=== PATIENT | female | born 1995 | race Caucasian/White ===

== ENCOUNTER 2023-05-17 10:37 | Outpatient (REF) | payer MEDICAID, SELFPAY ==
[2023-05-17 11:13] LABS: MANUAL DIFF FLAG NO
[2023-05-17 11:34] LABS: Basophils Percent Auto 0.4 % (0-2); Eosinophils Absolute Auto 0.1 X10*3/uL (0.0-0.4); Eosinophils Percent Auto 1.4 % (0-4); Hematocrit 42.3 % (37.0-47.0); Hemoglobin 13.7 g/dl (12.0-16.0); Imm Gran Abs Auto 0.02 X10*3/uL (0.00-0.03); Imm Gran Pct Auto 0.2 % (0.0-0.4); Lymphocytes Absolute Auto 2.4 X10*3/uL (1.2-4.9); Lymphocytes Percent Auto 26.1 % (20-40); Mean Corpuscular HGB Conc 32.4 g/dl (31.0-35.0); Mean Corpuscular Hemoglobin 31.5 pg (27.0-33.0); Mean Corpuscular Volume 97.2 fL (80.0-98.0); Mean Platelet Volume 12.4 fL (9.4-12.3); Monocytes Absolute Auto 0.7 X10*3/uL (0.1-1.2); Monocytes Percent Auto 7.7 % (2-11); Neutrophils Percent Auto 64.2 % (45-73); Platelet Count 259 X10*3/uL (160-400); Red Blood Count 4.35 X10*6/uL (4.20-5.50); Red Cell Distribution Width 12.4 % (11.0-16.0); White Blood Count 9.4 X10*3/uL (4.8-10.8)
[2023-05-17 12:11] LABS: TSH reflex Free T4 1.83 uIU/mL (0.32-4.0)
[2023-05-18 06:59] LABS: HCG Tumor Marker <5 mIU/mL
== END 2023-05-17 10:38 | disposition home or self-care (01) ==
LOC: HO.HHCL 10:37
PROVIDERS: Visit Provider Registered Nurse
DX: N93.9 Abnormal uterine and vaginal bleeding, unspecified (principal); R53.83 Other fatigue
CPT/HCPCS: 36415; 84443; 84702; 85025

== ENCOUNTER 2023-07-04 10:02 | Outpatient (REF) | payer MEDICAID, SELFPAY ==
--- NOTE | ~2023-07-04 | XR_ITS ---
EXAMINATION: XR CHEST CLINICAL INFORMATION: Productive cough and wheezing COMPARISON: None available. TECHNIQUE: 2 views of the chest were obtained. FINDINGS: No significant abnormality is noted involving the heart, lungs, mediastinum, bony thorax or soft tissues. XR/XR chest 2V IMPRESSION: Unremarkable examination.
[2023-07-04 18:44] LABS: Influenza A PCR NEGATIVE (Negative); Influenza B PCR NEGATIVE (Negative); Resp Syncy Virus RNA Qual PCR NEGATIVE (Negative); SARS COV2 PCR INHOUSE NEGATIVE (Negative)
== END 2023-07-04 10:03 | disposition home or self-care (01) ==
LOC: HO.HHCX 10:02
PROVIDERS: Visit Provider Emergency Medicine
DX: J45.41 Moderate persistent asthma with (acute) exacerbation (principal)
CPT/HCPCS: 0241U; 71046; 87070

== ENCOUNTER 2023-07-20 14:27 | Outpatient (REF) | payer MEDICAID, SELFPAY ==
[2023-07-20 16:22] LABS: Estimated Average Glucose 94 mg/dL; Hemoglobin A1c % 4.9 % (<6.0)
[2023-07-20 16:32] LABS: Cholesterol 152 mg/dL (<200); HDL Cholesterol 65 mg/dL (>40); LDL Cholesterol Calculated 76 mg/dL (<100); Triglycerides 56 mg/dL (<150)
[2023-07-21 08:24] LABS: HBS Num1 0.48 mIU/mL (0-7.99); HBc Num1 0.08 S/CO (0.00-0.79); HBsAGNum1 0.37 S/CO (0.00-0.99); Hepatitis B Core Antibody Nonreactive (Nonreactive); Hepatitis B Surface Antigen Negative (Negative); ~HepC Num1 0.11 S/CO (0.00-0.79); ~Hepatitis B Surface Antibody NONREACTIVE (Nonreactive); ~Hepatitis C Antibody Nonreactive (Nonreactive)
== END 2023-07-20 14:28 | disposition home or self-care (01) ==
LOC: HO.HHCL 14:27
PROVIDERS: Visit Provider Nurse Practitioner Primary Care
DX: Z00.00 Encounter for general adult medical examination without abnormal findings (principal); Z13.220 Encounter for screening for lipoid disorders
CPT/HCPCS: 36415; 80061; 83036; 86704; 86706; 86803; 87340

== ENCOUNTER 2023-11-01 11:12 | Outpatient (REF) | payer MEDICAID, SELFPAY ==
[2023-11-01 14:00] LABS: Alanine Aminotransferase 14 U/L (0-31); Albumin Level 4.6 g/dL (3.5-5.0); Alkaline Phosphatase 62 U/L (39-117); Anion Gap 14 (12-20); Aspartate Amino Transferase 21 U/L (5-31); Bilirubin Total 0.4 mg/dL (0.0-1.0); Blood Urea Nitrogen 12 mg/dL (9-16); Calcium 9.5 mg/dL (8.4-10.2); Carbon Dioxide 24 mmol/L (22-29); Chloride 104 mmol/L (96-108); Estimated Glomerular Filt Rate > 60; Glucose Random 65 mg/dL (60-115); Potassium 3.6 mmol/L (3.3-5.1); Sodium 138 mmol/L (135-145); Total Protein 7.3 g/dL (6.5-8.0)
[2023-11-02 09:42] LABS: Thyroglobulin Antibodies <1 IU/mL (< or = 1)
== END 2023-11-01 11:13 | disposition home or self-care (01) ==
LOC: HO.HHCL 11:12
PROVIDERS: Visit Provider Registered Nurse
DX: Z00.00 Encounter for general adult medical examination without abnormal findings (principal)
CPT/HCPCS: 36415; 80053; 84443; 86800

== ENCOUNTER 2024-09-18 09:56 | Outpatient (REF) | payer MEDICAID, SELFPAY ==
--- OUTSIDE RECORDS SUMMARY | 2024-09-18 17:51 | XMS_ITS | Clinical Summary ---
Author Organization [employer] Address [address] [facility] 7[address] [place] [address] Care Team Providers Care Trailer Technician Name Role Phone Marisa Sebastian DAYLIGHT DRILLER Primary Care Provider [phone] Allergies No known active allergies Medications * This document contains information received from the source organization and may not represent a complete record from that organization. 27-1 MG tablet TAKE 1 TABLET BY MOUTH EVERY DAY 90 tablet 3 023 Active Additional Information Patient not taking.Reported on 03/13/2024 Spacer/Aero-Hol ding Chambers (OptiChamber Yris) misc 1 each every 4 (four) hours if needed (asthma). 1 each 024 Active Additional Information Patient not taking.Reported on 03/13/2024 cetirizine (ZyrTEC) 10 MG tabletIndicatio ns:Seasonal allergies Take 1 tablet (10 mg) by mouth Once per day. 30 tablet 11 024 2024 Active Additional Information Patient not taking.Reported on 03/13/2024 fluticasone (Flonase) 50 MCG/ACT nasal spray INSTILL 1-2 SPRAYS IN EACH NOSTRIL ONCE DAILY NEEDED 48 g 3 024 Active Additional Information Patient not taking.Reported on 03/13/2024 albuterol 0.63 MG/3ML nebulizer solutionIndicat ions:Moderate persistent asthma without complication Take 3 mL (0.63 mg) by nebulization every 6 (six) hours if needed for wheezing or shortness of breath. 75 mL 3 024 2024 Active ibuprofen 600 MG tabletIndicatio ns:Cervicalgia Take 1 tablet (600 mg) by mouth every 6 (six) hours if needed for mild pain or moderate pain. 30 tablet Active ARIPiprazole (Abilify) 10 MG tablet Take 10 mg by mouth Once per day. Active cloNIDine (Catapres) 0.1 MG tablet Take 0.1 mg by mouth if needed in the morning, at noon, and at bedtime. Active Nebulizers (Proneb Ultra II/LC Plus) device USE DIRECTED WITH inhalation SOLUTION EVERY DAY NEEDED Active clonazePAM (KlonoPIN) 0.5 MG tablet TAKE 1 TABLET BY MOUTH ONCE DAILY NEEDED FOR ANXIETY (SEVERE) Active QUEtiapine (SEROquel) 100 MG tablet TAKE 1/2 TABLET BY MOUTH EVERY MORNING AND 1 TABLET AT BEDTIME Active fluticasone furoate (Arnuity Ellipta) 200 MCG/ACT inhalerIndicati ons:Moderate persistent asthma without complication INHALE 1 PUFF BY MOUTH EVERY DAY AT THE SAME TIME. Rinse mouth with water after use to reduce aftertaste and incidence of candidiasis. Do not swallow. 30 each 3 Active cyclobenzaprine (Flexeril) 10 MG tabletIndicatio ns:Right hip pain One tab po at bedtime prn pain of muscles, do not drive with medication 30 tablet 1 Active albuterol (Ventolin HFA) 108 (90 Base) MCG/ACT inhaler INHALE 2 PUFFS BY MOUTH EVERY 4-6 HOURS NEEDED FOR WHEEZING OR SHORTNESS OF BREATH 18 g 3 Active albuterol (2.5 MG/3ML) 0.083% nebulizer solution Take 3 mL (2.5 mg) by nebulization Every 4-6 hours as needed for wheezing or shortness of breath. 75 mL 2 025 2025 Active QUEtiapine (SEROquel) 50 MG tablet Take 1.5 tablets (75 mg) by mouth at bedtime. 45 tablet 1 024 2024 Discontinued(T herapy completed) cyclobenzaprine (Flexeril) 10 MG tabletIndicatio ns:Right hip pain One tab po at bedtime prn pain of muscles, do not drive with medication 14 tablet 024 2024 Discontinued(R eorder (will not trigger notification to Pharmacy)) Arnuity Ellipta 200 MCG/ACT inhalerIndicati ons:Moderate persistent asthma without complication INHALE 1 PUFF BY MOUTH EVERY DAY AT THE SAME TIME 30 each 3 024 2024 Discontinued(R eorder (will not trigger notification to Pharmacy)) Ventolin HFA 108 (90 Base) MCG/ACT inhaler INHALE 2 PUFFS BY MOUTH EVERY 4 HOURS NEEDED FOR WHEEZING OR SHORTNESS OF BREATH 18 g 3 024 2024 Discontinued(R eorder (will not trigger notification to Pharmacy)) Active Problems Problem Noted Date Diagnosed Date Low back pain at multiple sites 03/02/2024 Right hip pain 02/26/2024 Assessment & Plan (03/02/2024 10:53 AM EDT): Patient will come 03/08/24 to get xrays ordered 02/25 visit. Continue stretching, Ibuprofen/Tylenol during the day, Flexeril before bedtime. Red flags for ER. Assessment & Plan (02/26/2024 5:56 PM EDT): Fell down stairs approx. 1.5 weeks ago -will order R hip XR -will prescribe ibuprofen and muscle relaxer's. -discussed return and ER precautions. Mood disorder 11/04/2023 Assessment & Plan (11/19/2023 6:14 PM EDT): - Previous diagnoses of Bipolar disorder II, MDD, anxiety, and PTSD -Symptom improvement s/p initiation of Seroquel Plan: Cont Seroquel 100mg nightly. Reviewed med use and SE TSH WNL October 2023 Medical release form signed to communicate with psych team October 2023 Follow up with therapist/psych prescriber as scheduled Crisis information/safety planning Assessment & Plan (11/04/2023 12:10 PM EDT): - Previous diagnoses of Bipolar disorder II, MDD, anxiety, and PTSD - Pt presenting today with pressured speech, anxious disposition, lack of sleep, irritable at home, and lack of appetite. Reports common symptoms for her as starting manic episode - Currently following with therapist and has upcoming appt scheduled 11/16/23 with psych prescriber. However, presenting to office today for assistance with worsening sleep and symptoms prior to appt. Plan: START Seroquel 100mg nightly. Reviewed med use and SE Check TSH Medical release form signed to communicate with psych team Follow up with therapist/psych prescriber as scheduled Crisis information/safety planning Tobacco dependence 07/04/2023 Healthcare maintenance 05/16/2023 Overview (09/18/2024): Last PE: 07/20/23 Dental: referral to [facility] Dental 11/01/23 Pap: due MDD (major depressive disorder) 04/04/2023 Assessment & Plan (04/05/2023 9:30 AM EDT): Patient with symptoms of depression and anxiety. No risk of self-harm, SI or HI. History of depression, lack of social supports and being recently fired from her job are exacerbating the symptoms. Reason for visit was to assess symptoms, provide support/interventions and offer referral. Plan is to refer patient for OP individual therapy. Provided psychoeducation around depression, anxiety and ways to cope with life stressors. [facility] crisis line provided. At this time Megan Jenkins meets criteria for Visit Diagnoses: Problem List Items Addressed This Visit Other MDD (major depressive disorder) Unemployment Anxiety Patient ready to address current needs Yes Strengths include readiness and determination to change. PLAN: 1. Follow up with [facility]: Not recommended for follow-up 2. Patient goal is to reconnect with services for individual therapy. 3. Behavioral Recommendations a. Referral for OP individual therapy b. Follow-up with PCP if needed c. Incorporate mindfulness techniques into daily routine d. Contact [facility] program with [facility] if sooner appointment is needed or urgent care/crisis. Anxiety 04/04/2023 Assessment & Plan (04/05/2023 9:30 AM EDT): Patient with symptoms of depression and anxiety. No risk of self-harm, SI or HI. History of depression, lack of social supports and being recently fired from her job are exacerbating the symptoms. Reason for visit was to assess symptoms, provide support/interventions and offer BH referral. Plan is to refer patient for OP individual therapy. Provided psychoeducation around depression, anxiety and ways to cope with life stressors. [facility] crisis line provided. At this time Megan Jenkins meets criteria for Visit Diagnoses: Problem List Items Addressed This Visit Other MDD (major depressive disorder) Unemployment Anxiety Patient ready to address current needs Yes Strengths include readiness and determination to change. PLAN: 1. Follow up with [facility]: Not recommended for follow-up 2. Patient goal is to reconnect with services for individual therapy. 3. Behavioral Recommendations a. Referral for OP individual therapy b. Follow-up with PCP if needed c. Incorporate mindfulness techniques into daily routine d. Contact [facility] program with [facility] if sooner appointment is needed or urgent care/crisis. Moderate persistent asthma with acute exacerbati on 04/26/2022 Overview (01/24/2024): Controller: Arnuity Ellipta 200mcg/act 1 puff BID Rescue: Albuterol PRN Nebulizer received 2023 Assessment & Plan (06/01/2024 10:53 AM EST): Patient symptomatology and physical exam indicative of this Plan: Continue using inhalers Prednisone ruslan Pt recently finished a Z-pack per her report (prescribed 05/20) Obtain Chest x-ray Follow up if not improving with current tx Assessment & Plan (11/19/2023 6:15 PM EDT): Asthma exacerbation: 11/13/23 -Follow up if not improving with current tx Assessment & Plan (01/25/2023 11:50 AM EDT): Pt with acute asthma exacerbation, as evidenced by increased rescues inhaler use, waking up at night wheezing - prednisone taper ordered 60mg x 3 days, 40mg x 3 days, 20mg x 3 days - restart Flovent twice daily 2 puffs, rinse mouth afterwards - continue to cut down and back on smoking - avoid other known triggers - followup in clinic, WIC, or ED if her symptoms do not improve with 24-48 hours Assessment & Plan (05/29/2022 6:39 PM EST): -PFT previously ordered, pending scheduling -ACT score 13, not well controlled -START flovent 1 puff BID, reviewed med safety, rinse and spit after each use -Continue albuterol PRN -Reviewed ED/urgent care precautions Scoliosis deformity of spine 04/26/2022 Assessment & Plan (05/29/2022 6:33 PM EST): -No red flag symptoms -X-ray for further eval -Referral to Chiropractic -Encouraged symptomatic management at home Resolved Problems Problem Noted Date Diagnosed Date Resolved Date Unemployment 04/04/2023 09/18/2024 Assessment & Plan (04/05/2023 9:30 AM EDT): Patient with symptoms of depression and anxiety. No risk of self-harm, SI or HI. History of depression, lack of social supports and being recently fired from her job are exacerbating the symptoms. Reason for visit was to assess symptoms, provide support/interventions and offer referral. Plan is to refer patient for OP individual therapy. Provided psychoeducation around depression, anxiety and ways to cope with life stressors. [facility] crisis line provided. At this time Megan Jenkins meets criteria for Visit Diagnoses: Problem List Items Addressed This Visit Other MDD (major depressive disorder) Unemployment Anxiety Patient ready to address current needs Yes Strengths include readiness and determination to change. PLAN: 1. Follow up with [facility]: Not recommended for follow-up 2. Patient goal is to reconnect with services for individual therapy. 3. Behavioral Recommendations a. Referral for OP individual therapy b. Follow-up with PCP if needed c. Incorporate mindfulness techniques into daily routine d. Contact [facility] program with [facility] if sooner appointment is needed or urgent care/crisis. Encounters Date Type Department Care Team Description 09/18/2024 9:15 AM EDT Office Visit [facility] [address] [place] [phone] Marisa Sebastian FNP Encounter for routine history and physical examination of adult (Primary Dx); Mood disorder (CMS/HCC); Moderate persistent asthma with acute exacerbation; Tobacco dependence; Healthcare maintenance; Numbness and tingling in both hands; Cervical cancer screening; Moderate persistent asthma without complication; Right hip pain 09/18/2024 Telephone [facility] [address] [place] [address] Marisa Sebastian FNP Appointment Request 09/18/2024 Travel 09/12/2024 Telephone [facility] [address] [place] [address] Marisa Sebastian FNP 09/06/2024 Patient Outreach [facility] [address] [place] [address] Marisa Sebastian FNP Pre-visit Planning (Pre-visit planning - LVM ) 08/23/2024 Population Health Risk Score [facility] ([facility]) Department [address] [place] [phone] Provider, Population Health Generic 08/07/2024 1:15 PM EST Immunization [facility] [address] [place] [address] [phone] Marissa Wang LPN Encounter for immunization (Primary Dx) 08/07/2024 Travel 06/29/2024 9:00 AM EST Office Visit [facility] [address] [place] [address] Tashi Perez MD Pain in both hands (Primary Dx) 06/29/2024 Travel from Last 3 Months Immunizations Name Administration Dates Next Due Hep B, adult 08/07/2024,03/08/2024,11/01/2023 Influenza injectable quadriv alent preservative free 05/17/2023,03/16/2022 Influenza, seasonal, injecta ble, preservative free 03/08/2024 Pfizer Covid-19 Vaccine 12+ 03/08/2024,1 07/18/2022,06/10/2021,2020 Pfizer Covid-19 Vaccine 12+ Bivalent 03/16/2022 Pneumococcal Conjugate PCV 20 11/15/2023 Tdap 03/16/2022 Family History Medical History Relation Name Comments genetic condition Brother COPD Father's Sister Lung cancer Mother mental health Mother's Sister COPD Paternal Grandmother Hypertension Paternal Grandmother Relation Name Status Comments Brother Father's Sister Mother Mother's Sister Paternal Grandmother Social History Tobacco Use Types Packs/Day Years Used Date Smoking Tobacco: Every Day Cigarettes Passive Smoke Exposure: Current Smokeless Tobacco: Never Tobacco Cessation:Ready to Q uit: Not Asked; Counseling Given: Not Answered Alcohol Use Standard Drinks/Week Comments Yes 0 (1 standard drink = 0.6 oz pur e alcohol) socially Depression Answer Date Recorded Patient Health Questionnaire-9 Score 3 11/15/2023 Patient Health Questionnaire-9 Score 3 11/15/2023 Last PHQ-9: Questionnaire Data Not on file 0 11/15/2023 Housing Stability Answer Date Recorded What is your housing situation today? I have dario leigh 07/20/[address] you li ve. Do you have problems with any of the following? None of the above 07/20/2023 Food Insecurity Answer Date Recorded Within the past 12 months, y ou worried that your food would run out before you got money to buy more: Never True 07/20/2023 Within the past 12 months,th e food you bought just didn't last and you didn't have enough money to get more: Never True 01/2024 Transportation Answer Date Recorded In the past 12 months, has l ack of transportation kept you from medical appts, meetings, work or from getting things needed for daily living? No 07/20/2023 Utilities Answer Date Recorded In the past 12 months, has t he electric, gas, oil or water company threatened to shut off services in your home? No 07/20/2023 Depression Answer Date Recorded Patient Health Questionnaire-2 Score 0 11/15/2023 Comments No Sex and Gender Information Value Date Recorded Sex Assigned at Female 04/11/2022 10:39 AM EDT Legal Sex Female 10:39 AM EDT Gender Identity Female 04/11/2022 10:39 AM EDT Sexual Orientation Bisexual 05/27/2022 2: 03 PM EST Last Filed Vital Signs Vital Sign Reading Time Taken Comments Blood Pressure 123/84 09/18/2024 9:06 AM EDT Pulse 61 09/18/2024 9:06 AM EDT Temperature 36.1 ??C (97 ??F) 09/18/2024 9:06 AM EDT Respiratory Rate 22 09/18/2024 9:06 AM EDT Oxygen Saturation 99% 09/18/2024 9:06 AM EDT Inhaled Oxygen Concentration - - Weight 79.5 kg (175 lb 4 oz) 09/18/2024 9:06 AM EDT Height 167.6 cm (5' 6 ) 09/18/2024 9:06 AM EDT Body Mass Index 28.29 09/18/2024 9:06 AM EDT Plan of Treatment Health Maintenance Due Date Last Done Comments Dental Prophylaxis 1995 Dental X-Ray: Bitewings 1995 Dental X-Ray: Full Mouth 1995 HIV Screening 1995 Alcohol/Substance Use Screening 2007 Family Planning (PISQ) 2010 Pap Smear 2016 SDOH Screening 07/20/2024 07/20/2023 Dental Oral Exam 09/25/2024 03/26/2024 Depression Screening 11/14/2024 11/15/2023, 11/15/19 Tobacco Screening 09/18/2025 09/18/2024 Lipid Panel 07/20/2028 07/20/2023 DTaP/Tdap/Td Vaccines (2 - Td or Tdap) 03/16/2032 03/16/2022 Zoster Vaccines (1 of 2) 2045 RSV Patients and Patients Aged 60 years or older (1 - 1-dose 75+ series) 2070 Hepatitis C Screening Completed 07/20/2023 Pneumococcal Vaccine: Pediatrics (0 to 5 Years) and At-Risk Patients (6 to 49) Years) Completed 11/15/2023 COVID-19 Vaccine Completed 03/08/2024, 11/2022, 03/16/2022, Additional history exists Influenza Vaccine Completed 03/08/2024, , 03/16/2022 Hepatitis B Vaccines Completed 08/07/2024, 03/08/2024, 11/01/2023 HIB Vaccines Aged Out No longer eligi ble based on patient's age to complete this topic HPV Vaccines Aged Out No longer eligi ble based on patient's age to complete this topic Hepatitis A Vaccines Aged Out No long er eligible based on patient's age to complete this topic IPV Vaccines Aged Out No longer eligi ble based on patient's age to complete this topic Meningococcal Vaccine Aged Out No nicolasa britt eligible based on patient's age to complete this topic RSV under 20 months Aged Out No longe r eligible based on patient's age to complete this topic Rotavirus Vaccines Aged Out No longer eligible based on patient's age to complete this topic Procedures Procedure Name Priority Date/Time Associated Diagnosis Comments COMPREHENSIVE ORAL EVALUATION - NEW OR ESTABLISHED PATIENT Routine 03/26/2024 2:30 PM EDT Encounter for dental examination and cleaning with abnormal findings HEPATITIS C AB W/REFL TO HCV RNA, QN, PCR Routine 07/20/2023 2:28 PM EST Healthcare maintenance LIPID PANEL, STANDARD Routine 07/20/2023 2:28 PM EST Lipid screening from Last 3 Months or Most Recently Relevant to Health Maintenance Results * Hepatitis C Antibody with Reflex to HCV, RNA, Quantitative, Real-Time PCR (07/20/2023 2:28 PM EST) Hepatitis C Antibody Nonreactive Nonreactive [facility] Comment:Antibodies to HCV no t detected; does not exclude early acuteHCV infection. Blood Venous blood specimen / Unknown 07/20/2023 2:28 PM EST 07/20/2023 4:01 PM EST [facility] LAB BLOOD ORDERABLES Final Resul t [facility] [address] [place] [phone] * Lipid Panel, Standard (07/20/2023 2:28 PM EST) Triglycerides 56 <150 mg/dL [facility] Comment:Desirable Triglyceri de: less than 150 mg/dLBorderline High Triglyceride 150-199 mg/dLHigh Triglyceride: 200-499 mg/dLVery High Triglyceride: greater than or equal to 5OO mg/dL Cholesterol 152 <200 mg/dL [facility] Comment:Desirable Cholestero l: less than 200 mg/dLBorderline High Cholesterol: 200-239 mg/dLHigh Cholesterol: greater than 239 mg/dL LDL Cholesterol Calculated 76 <100 mg/dL [facility] Comment:Desirable LDL: less than 100 mg/dLNear Optimal/Above Optimal LDL: 110- 129 mg/dLBorderline High LDL: 130-159 mg/dLHigh LDL: 160-189 mg/dLVery High LDL: greater than or equal to 190 mg/dL HDL Cholesterol 65 >40 mg/dL [facility] Comment:Desirable HDL: great er than 40 mg/dL Note: This HDL assay may give artificially low results in patients with liver disease. Blood Venous blood specimen / Unknown 07/20/2023 2:28 PM EST 07/20/2023 4:01 PM EST [facility] LAB BLOOD ORDERABLES Final Resul t [facility] [address] [place] [address] [phone] from Last 3 Months or Most Recently Relevant to Health Maintenance Insurance [facility] [employer] [facility] [employer] STAND ADULT Care Teams Trailer Technician Relationship Specialty Start Date End Date Marisa Sebastian FNP [address] [place] [address] PCP - General Family Medicine 05/13/22
--- OUTSIDE RECORDS SUMMARY | 2024-09-18 17:51 | XMS_ITS | Encounter Summary ---
Author Organization [employer] Address [address] [facility] [address] [place] [address] Care Team Providers Care Irrigationist Designer Name Role Phone Marisa Sebastian PROFILE SAW SETUP OPERATOR Primary Care Provider [phone] Encounter Details Date Type Department Care Team (Latest Contact Info) Description 09/18/2024 Travel Social History Tobacco Use Types Packs/Day Years Used Date Smoking Tobacco: Every Day Cigarettes Passive Smoke Exposure: Current Smokeless Tobacco: Never Alcohol Use Standard Drinks/Week Comments Yes 0 [...] Orientation Bisexual 05/27/2022 2: 03 PM EST documented as of this encounter Plan of Treatment Not on file documented as of this encounter Visit Diagnoses Not on filedocumented in this encounter Additional Health Concerns Assessment Noted Time PHQ-9 Depression Total Score: 3 11/15/19 24 8:53 AM EDT documented as of this encounter Care Teams Irrigationist Designer Relationship Specialty Start Date End Date Marisa Sebastian FNP [address] [place] [address] PCP - General Family Medicine 05/13/22 documented as of this encounter
--- OUTSIDE RECORDS SUMMARY | 2024-09-18 17:51 | XMS_ITS | Encounter Summary ---
Author Organization [employer] Address [address] [facility] [address] [place] [address] Care Team Providers Care Auditor/Quality Name Role Phone Marisa Sebastian NARINDER Primary Care Provider [phone] Reason for Visit * Reason Comments Med Refill Encounter Details Date Type Department Care Team (Late st Contact Info) Description 04/06/2023 Refill [facility] [address] [place], [place] [phone] Name, MD Nav [address] [place], [place] [phone] Social History Tobacco Use Types Packs/Day Years Used Date Smoking Tobacco: Every Day Cigarettes Passive Smoke Exposure: Current Smokeless Tobacco: Never Alcohol Use Standard Drinks/Week Comments Never 0 (1 standard drink = 0.6 oz pur e alcohol) Depression Answer Date Recorded Patient Health Questionnaire-9 Score 13 04/04/2023 Patient Health Questionnaire-9 Score 13 04/04/2023 Last PHQ-9: Questionnaire Data Not on file 1 Housing Stability Answer Date Recorded What is your housing situation today? I have dario leigh 04/03/[address] you li ve. Do you have problems with any of the following? None of the above 04/03/2023 Food Insecurity Answer Date Recorded Within the past 12 months, y ou worried that your food would run out before you got money to buy more: Never True 04/03/2023 Within the past 12 months,th e food you bought just didn't last and you didn't have enough money to get more: Never True Transportation Answer Date Recorded In the past 12 months, has l ack of transportation kept you from medical appts, meetings, work or from getting things needed for daily living? No 04/03/2023 Utilities Answer Date Recorded In the past 12 months, has t he electric, gas, oil or water company threatened to shut off services in your home? No 04/03/2023 Depression Answer Date Recorded Patient Health Questionnaire-2 Score 6 04/04/2023 Comments Unknown Sex and Gender Information Value Date Recorded [...] Assessment Noted Time PHQ-9 Depression Total Score: 13 023 4:25 PM EDT documented as of this encounter Care Teams Auditor/Quality Relationship Specialty Start Date End Date Marisa Sebastian FNP [address] [place] [phone] PCP - General Family Medicine 05/13/22 documented as of this encounter
--- OUTSIDE RECORDS SUMMARY | 2024-09-18 17:51 | XMS_ITS | Encounter Summary ---
Author Organization [employer] Address [address] [facility] 7t [place] [address] Care Team Providers Care Display Carver Name Role Phone Marisa Sebastian Primary Care Provider [phone] Encounter Details Date Type Department Care Team (Late st Contact Info) Description 12/19/2022 Orders Only [facility] [address] [place], [place] [phone] Natividad Toure FNP [address] [place], [place] [phone] Seasonal allergies (Primary Dx) Social History Tobacco Use Types Packs/Day Years Used Date Smoking Tobacco: Every Day Cigarettes Passive Smoke Exposure: Current Smokeless Tobacco: Never Alcohol Use Standard Drinks/Week Comments Never 0 (1 standard drink = 0.6 oz pur e alcohol) Depression Answer Date Recorded Patient Health Questionnaire-9 Score 0 06/24/2022 Depression Answer Date Recorded Patient Health Questionnaire-2 Score 0 06/24/2022 Comments Unknown Sex and Gender Information Value Date Recorded Sex Assigned at Female 04/11/2022 10:39 AM EDT Legal Sex Female 10:39 AM EDT Gender Identity Female 04/11/2022 10:39 AM EDT Sexual Orientation Bisexual 05/27/2022 2: 03 PM EST documented as of this encounter Plan of Treatment Not on file documented as of this encounter Visit Diagnoses Diagnosis Seasonal allergies- Primary Allergic rhinitis, cause unspecified documented in this encounter Additional Health Concerns Assessment Noted Time PHQ-9 Depression Total Score: 0 06/24/19 23 1:41 PM EST documented as of this encounter Care Teams Display Carver Relationship Specialty Start Date End Date Marisa Sebastian FNP [address] [place] [address] PCP - General Family Medicine 05/13/22 documented as of this encounter
--- OUTSIDE RECORDS SUMMARY | 2024-09-18 17:51 | XMS_ITS | Encounter Summary ---
Author Organization [employer] Address [address] [facility] 7t [place] [address] Care Team Providers Care Service Observer Chief Name Role Phone Marisa Sebastian Primary Care Provider [phone] Reason for Visit * Reason Onset Date Comments Appointment Request 09/18/2024 Encounter Details Date Type Department Care Team ([facility] st Contact Info) Description 09/18/2024 Telephone [facility] [address] [place] [address] Marisa Sebastian FNP [address] [place] [address] Appointment Request Social History Tobacco Use Types Packs/Day Years [...] PM EST documented as of this encounter Miscellaneous Notes * Telephone Encounter - Debbie Coe - 09/18/2024 12:33 PM EDT Called Patient left vm to call abck and schedule 15 min office visit in about 8 weeks (around 11/13/2024) with Ekaterina Chau for dyspareunia. Ok to schedule if Patient calls back. documented in this encounter Plan of Treatment Not on file documented as of this encounter Visit Diagnoses Not on filedocumented in this encounter Additional Health Concerns Assessment Noted Time PHQ-9 Depression Total Score: 3 11/15/19 24 8:53 AM EDT documented as of this encounter Care Teams Service Observer Chief Relationship Specialty Start Date End Date Marisa Sebastian FNP [address] [place] [address] PCP - General Family Medicine 05/13/22 documented as of this encounter
--- OUTSIDE RECORDS SUMMARY | 2024-09-18 17:51 | XMS_ITS | Clinical Summary ---
Author Organization [facility] it Address [address] [place] [address] Care Team Providers Care Spindraw Operator Name Role Phone Unavailable Primary Care Provider Unavailabl e Social History Tobacco Use Types Packs/Day Years Used Date Smoking Tobacco: Never Assessed Comments Unknown Sex and Gender Information Value Date Recorded Sex Assigned at Not on file Legal Sex Female 8:29 AM EST Gender Identity Not on file Sexual Orientation Not on file Plan of Treatment Health Maintenance Due Date Last Done Comments DTaP,Tdap,and Td Vaccines (1 - Tdap) 2014 Hepatitis B Vaccines (1 of 3 - 19+ 3-dose series) 2014 Cervical Cancer Screening: P ap Smear 2016 COVID-19 Vaccine (2023-2 5 season) 2024 Influenza Vaccine (Season Ended) 2025 HIB Vaccines Aged Out No longer eligi [...] on patient's age to complete this topic MMR Vaccines Aged Out No longer eligi ble based on patient's age to complete this topic Meningococcal ACWY Vaccine Aged Out N o longer eligible based on patient's age to complete this topic Meningococcal B Vaccine Aged Out No l onger eligible based on patient's age to complete this topic Pneumococcal Vaccine: Pediat rics (0 to 5 Years) and At-Risk Patients (6 to 64 Years) Aged Out No longer eligible b ased on patient's age to complete this topic RSV Immunization Patients Un suze 20 months Aged Out No longer eligible b ased on patient's age to complete this topic Varicella Vaccines Aged Out No longer eligible based on patient's age to complete this topic
--- OUTSIDE RECORDS SUMMARY | 2024-09-18 17:51 | XMS_ITS | Encounter Summary ---
Author Organization [employer] Address [address] [facility] 7t [place] [address] Care Team Providers Care Photographic Editor Name Role Phone Marisa Sebastian Primary Care Provider [phone] Encounter Details Date Type Department Care Team (Late st Contact Info) Description 10/04/2023 Telephone [facility] MED[facility] [address] [place] [address] Marisa Sebastian FNP [address] [place], [place] [phone] Social History Tobacco Use Types Packs/Day Years [...] t he electric, gas, oil or water [employer] threatened to shut off services in your [...] documented as of this encounter Care Teams Photographic Editor Relationship Specialty Start Date End Date Marisa Sebastian FNP [address] [place] [address] PCP - General Family Medicine 05/13/22 documented as of this encounter
--- OUTSIDE RECORDS SUMMARY | 2024-09-18 17:51 | XMS_ITS | Encounter Summary ---
Author Organization [employer] Address [address] [facility] 7t [place] [address] Care Team Providers Care Motorized Squad Commanding Officer Name Role Phone Marisa Sebastian Primary Care Provider [phone] Reason for Visit * Reason Comments Med Refill Encounter Details Date Type Department Care Team (Late st Contact Info) Description 01/12/2023 Refill [facility] [address] [place], [place] [phone] Alejandra Puentes FNP [address] [place], [place] [phone] Asthma in adult, mild persistent, with acute exacerbation Social History Tobacco Use Types Packs/Day Years [...] as of this encounter Visit Diagnoses Diagnosis Asthma in adult, mild persistent, with acute exacerbation documented in this encounter Additional Health Concerns Assessment Noted Time PHQ-9 Depression Total Score: 0 06/24/19 23 1:41 PM EST documented as of this encounter Care Teams Motorized Squad Commanding Officer Relationship Specialty Start Date End Date Marisa Sebastian FNP [address] [place], [place] [phone] PCP - General Family Medicine 05/13/22 documented as of this encounter
--- OUTSIDE RECORDS SUMMARY | 2024-09-18 17:51 | XMS_ITS | Encounter Summary ---
Author Organization [employer] Address [address] [facility] 7 [place] [address] Care Team Providers Care Outbound Sales Professional Name Role Phone Marisa Sebastian Primary Care Provider [phone] Reason for Referral * Neurology (Routine) - Authorized Specialty Diagnoses / Procedures Referred By Gen castillo Referred To Contact Diagnoses Numbness and tingling in both hands Procedures Nerve conduction test Marisa Sebastian FNP [address] [place] [address] Phone: tel: fax: [address] Phone: tel: fax: Referral ID Status Reason Start Date Expiration Date V isits Requested Visits Authorized [id number] Authorized 09/18/2024 09/18/2025 1 1 * Neurology (Routine) - Authorized Specialty Diagnoses / Procedures Referred By Gen castillo Referred To Contact Diagnoses Numbness and tingling in both hands Procedures EMG Marisa Sebastian FNP [address] [place] [address] Phone: tel: fax: [address] Phone: tel: fax: Referral ID Status Reason Start Date Expiration Date V isits Requested Visits Authorized [id number] Authorized 09/18/2024 09/18/2025 1 1 Encounter Details Date Type Department Care Team (Late st Contact Info) Description 09/18/2024 9:15 AM EDT Office Visit [facility] [address] [place] [address] Marisa Sebastian FNP [address] [place] [address] Encounter for routine history and physical examination of adult (Primary Dx); Mood disorder (CMS/HCC); Moderate persistent asthma with acute exacerbation; Tobacco dependence; Healthcare maintenance; Numbness and tingling in both hands; Cervical cancer screening; Moderate persistent asthma without complication; Right hip pain Social History Tobacco Use Types Packs/Day Years [...] is your housing situation today? I have draio leigh 07/20/[address] you [...] PM EST documented as of this encounter Last Filed Vital Signs Vital Sign Reading [...] Mass Index 28.29 09/18/2024 9:06 AM EDT documented in this encounter Plan of Treatment Scheduled Orders Name Type Priority Associated Diagnoses Order Schedule EMG Neurology Routine Numbness and tingling in both hands Expected: 09/18/2024, Expires: 03/20/2025 Nerve conduction test Neurology Routine Numbness and tingling in both hands Expected: 09/18/2024 (Approximate), Expires: 09/18/2025 Pap Smear Pathology and Cytology Routine Cervical cancer screening Ordered: 09/18/2024 HPV High Risk with Reflex to Subtypes Lab Routine Cervical cancer screening Ordered: 09/18/2024 Lipid Panel, Standard Lab Routine Encounter for routine history and physical examination of adult Expected: 09/18/2024 (Approximate), Expires: 09/18/2025 Hemoglobin A1c Lab Routine Encounter for routine history and physical examination of adult Expected: 09/18/2024 (Approximate), Expires: 09/18/2025 TSH with Reflex to Free T4 Lab Routine Encounter for routine history and physical examination of adult Expected: 09/18/2024 (Approximate), Expires: 09/18/2025 Comprehensive Metabolic Panel Lab Routine Encounter for routine history and physical examination of adult Expected: 09/18/2024 (Approximate), Expires: 09/18/2025 CBC auto differential Lab Routine Encounter for routine history and physical examination of adult Expected: 09/18/2024, Expires: 09/18/2025 Chlamydia/N. Gonorrhoeae RNA, TMA, Urogenitial Microbiology Routine Encounter for routine history and physical examination of adult Ordered: 09/18/2024 Hepatitis C Viral RNA, Quantitative, Real-Time PCR Lab Routine Encounter for routine history and physical examination of adult Expected: 09/18/2024 (Approximate), Expires: 09/18/2025 RPR (Monitor) with Reflex to??Titer Lab Routine Encounter for routine history and physical examination of adult Expected: 09/18/2024 (Approximate), Expires: 09/18/2025 HIV-1/2 Antigen and Antibodies, Fourth Generation, with Reflexes Lab Routine Encounter for routine history and physical examination of adult Expected: 09/18/2024 (Approximate), Expires: 09/18/2025 Vitamin D, 25-Hydroxy, Total, Immunoassay Lab Routine Encounter for routine history and physical examination of adult Expected: 09/18/2024 (Approximate), Expires: 09/18/2025 documented as of this encounter Visit Diagnoses Diagnosis Encounter for routine history and physical examination of adult- Primary Mood disorder (CMS/HCC) Unspecified episodic mood disorder Moderate persistent asthma with acute exacerbation Tobacco dependence Tobacco use disorder Healthcare maintenance Numbness and tingling in both hands Cervical cancer screening Screening for malignant neoplasm of the cervix Moderate persistent asthma without complication Right hip pain Pain in joint, pelvic region and thigh documented in this encounter Additional Health Concerns Assessment Noted Time PHQ-9 Depression Total Score: 3 11/15/19 24 8:53 AM EDT documented as of this encounter Care Teams Outbound Sales Professional Relationship Specialty Start Date End Date Marisa Sebastian FNP [address] [place] [address] PCP - General Family Medicine 05/13/22 documented as of this encounter
[2024-09-19 10:03] LABS: CT PCR NOT DETECTED (Not Detect.); NG PCR NOT DETECTED (Not Detect.)
== END 2024-09-18 09:57 | disposition home or self-care (01) ==
LOC: HO.LNP 09:56
PROVIDERS: Visit Provider Registered Nurse
DX: Z11.3 Encounter for screening for infections with a predominantly sexual mode of transmission (principal); Z12.4 Encounter for screening for malignant neoplasm of cervix; Z11.51 Encounter for screening for human papillomavirus (HPV)
CPT/HCPCS: 87491; 87591; 87626; 88175

== ENCOUNTER 2024-12-17 14:25 | Outpatient (REF) | payer MEDICAID, SELFPAY ==
--- OUTSIDE RECORDS SUMMARY | 2024-12-17 15:21 | XMS_ITS | Clinical Summary ---
Author Organization [facility] it Address [address] [place] [address] Care Team Providers Care Ruby Rails Developer Name Role Phone Unavailable Primary Care Provider [...] Screening: P ap Smear 2016 COVID-19 Vaccine ( - 2023-2 5 season) 2024 Influenza Vaccine (#1) 2025 HIB Vaccines Aged Out No longer [...] 5 Years) and At-Risk Patients (6 to 49 Years) Aged Out No longer eligible b ased on patient's age to complete this topic RSV Immunization Patients Un suze 20 months Aged Out No longer eligible b ased on patient's age to complete this topic Varicella Vaccines Aged Out No longer eligible based on patient's age to complete this topic
--- OUTSIDE RECORDS SUMMARY | 2024-12-17 15:21 | XMS_ITS | Encounter Summary ---
Author Organization [employer] Address [address] [facility] [address] [address] Care Team Providers Care Dental Practitioner Name Role Phone Marisa Sebastian MEDICAL SECRETARY TEACHER Primary Care Provider [phone] Encounter Details Date Type Department Care Team (Late Contact Info) Description 12/19/2022 Orders Only [facility] [address] [place], [place] [phone] Natividad Toure FNP [address] [place], [place] [phone] Seasonal allergies (Primary Dx) Social History Tobacco [...] as of this encounter Plan of Treatment Upcoming Encounters Date Type Department Care Team (Late Contact Info) Description 01/20/2025 1:15 PM EDT Office Visit [facility] [address] [place] [address] Ekaterina Chau CNM [address] [place], [place] [phone] documented as of this encounter Visit Diagnoses Diagnosis Seasonal allergies- Primary Allergic rhinitis, cause unspecified documented in this encounter Additional Health Concerns Assessment Noted Time PHQ-9 Depression Total Score: 0 06/24/19 23 1:41 PM EST documented as of this encounter Care Teams Dental Practitioner Relationship Specialty Start Date End Date Marisa Sebastian FNP [address] [place] [address] PCP - General Family Medicine 05/13/22 documented as of this encounter
[2024-12-17 17:21] LABS: MANUAL DIFF FLAG NO
[2024-12-17 17:33] LABS: Hematocrit 43.3 % (37.0-47.0); Hemoglobin 14.3 g/dl (12.0-16.0); Imm Gran Abs Auto 0.03 X10*3/uL (0.00-0.03); Imm Gran Pct Auto 0.4 % (0.0-0.4); Lymphocytes Absolute Auto 3.1 X10*3/uL (1.2-4.9); Mean Corpuscular HGB Conc 33.0 g/dl (31.0-35.0); Mean Corpuscular Hemoglobin 30.9 pg (27.0-33.0); Mean Corpuscular Volume 93.5 fL (80.0-98.0); NRBC Abs Auto 0.000 X10*3/uL (0.0-0.012); NRBC Pct Auto 0.0 /100WBC (0.0-0.2); Platelet Count 247 X10*3/uL (160-400); Red Blood Count 4.63 X10*6/uL (4.20-5.50); White Blood Count 7.4 X10*3/uL (4.8-10.8)
[2024-12-17 17:40] LABS: Hemoglobin A1C 122.7376 umol/L; Total Hemoglobin (HGBA1C) 3766.0106 umol/L
[2024-12-17 17:57] LABS: Alanine Aminotransferase 15 U/L (0-31); Albumin Level 4.6 g/dL (3.5-5.0); Alkaline Phosphatase 62 U/L (39-117); Anion Gap 11 (12-20); Aspartate Amino Transferase 20 U/L (5-31); Blood Urea Nitrogen 12 mg/dL (9-16); Calcium 8.9 mg/dL (8.4-10.2); Carbon Dioxide 26 mmol/L (22-29); Chloride 107 mmol/L (96-108); Cholesterol 163 mg/dL (<200); Estimated Glomerular Filt Rate > 60; HDL Cholesterol 51 mg/dL (>40); Potassium 3.9 mmol/L (3.3-5.1); Sodium 140 mmol/L (135-145); Total Protein 7.1 g/dL (6.5-8.0); Triglycerides 90 mg/dL (<150)
[2024-12-17 18:24] LABS: Folate 8.9 ng/mL (> or = 4.0); Vitamin B12 342 pg/mL (200-900)
[2024-12-18 03:35] LABS: HIV Num 1 0.05 S/CO (0.00-0.99)
[2024-12-18 14:14] LABS: HCV Log PCR <1.18 NOT DETECTED Log IU/mL (NOT DETECTED); HepC Viral Load <15 NOT DETECTED IU/mL (NOT DETECTED)
== END 2024-12-17 14:26 | disposition home or self-care (01) ==
LOC: HO.HHCL 14:25
PROVIDERS: Family Medicine; PCP Registered Nurse; Visit Provider Registered Nurse Psychiatric/Mental Health
DX: Z00.00 Encounter for general adult medical examination without abnormal findings (principal); M79.641 Pain in right hand; M79.642 Pain in left hand; Z79.899 Other long term (current) drug therapy
CPT/HCPCS: 36415; 80053; 80061; 82306; 82607; 82746; 83036; 84443; 85025; 85652; 86140; 86431; 86592; 87389; 87522

== ENCOUNTER 2025-03-12 08:47 | Outpatient (REF) | payer MEDICAID, SELFPAY ==
--- NOTE | ~2025-03-12 | XR_ITS ---
EXAMINATION: XR CHEST CLINICAL INFORMATION: 1-week duration of worsening SOB and wheezing. COMPARISON: 07/04/2023. TECHNIQUE: 2 views of the chest were obtained. FINDINGS: The cardiac, hilar, and mediastinal contours are normal. The lungs are clear bilaterally. There is no pneumothorax or pleural effusion. There is no focal osseous or soft tissue abnormality. XR/XR chest 2V IMPRESSION: Normal chest. Electronically signed by: Len Michel MD 03/12/2025 09:02 AM EDT
--- OUTSIDE RECORDS SUMMARY | 2025-03-12 09:00 | XMS_ITS | Encounter Summary ---
Author Organization [employer] Address [address] [facility] 7t [place] [address] Care Team Providers Care Patient Accounts Specialist Name Role Phone Marisa Sebastian Primary Care Provider [phone] Reason for Visit * Reason Comments Follow-up Asthma Encounter Details Date Type Department Care Team ([facility] Contact Info) Description 03/12/2025 9:00 AM EDT Office Visit [facility] MED[facility]INE [address] [place] [address] Marisa Sebastian FNP [address] [place] [address] Generalized abdominal pain (Primary Dx); Healthcare maintenance; Moderate persistent asthma without complication; Encounter for immunization; Encounter for vaccination Social History Tobacco Use Types Packs/Day Years Used Date Smoking Tobacco: Every Day Cigarettes Passive Smoke Exposure: Current Smokeless Tobacco: Never Tobacco Cessation:Ready to Q uit: Not Asked; Counseling Given: Not Answered Alcohol Use Standard Drinks/Week Comments Not Currently 0 (1 standard drink = 0.6 oz pur e alcohol) socially Depression Answer Date Recorded Patient Health Questionnaire-9 Score 8 03/12/2025 Patient Health Questionnaire-9 Score 8 03/12/2025 Last PHQ-9: Questionnaire Data Not on file [...] Answer Date Recorded Patient Health Questionnaire-2 Score 3 03/12/2025 Comments No Sex and Gender Information Value Date Recorded Sex Assigned at Female 04/11/2022 10:39 AM EDT Legal Sex Female 10:39 AM EDT Gender Identity Female 04/11/2022 10:39 AM EDT Sexual Orientation Bisexual 05/27/2022 2: 03 PM EST documented as of this encounter Last Filed Vital Signs Vital Sign Reading Time Taken Comments Blood Pressure 110/70 03/12/2025 9:06 AM EDT Pulse 72 03/12/2025 9:06 AM EDT Temperature 36.1 C (97 F) 03/12/2025 9:06 AM EDT Respiratory Rate 20 03/12/2025 9:06 AM EDT Oxygen Saturation 99% 03/12/2025 9:06 AM EDT Inhaled Oxygen Concentration - - Weight 73 kg (161 lb) 03/12/2025 9:06 AM EDT Height 167.6 cm (5' 6 ) 03/12/2025 9:06 AM EDT Body Mass Index 25.99 03/12/2025 9:06 AM EDT documented in this encounter Functional Status * Over the past 2 weeks, how often have you been bothered by any of the following problems? Question Answer Date of Assessment Author Patient Health Questionnaire -2 Score 3 03/12/2025 9:13 AM EDT Sayra Sprague MA * Little interest or pleasure in doing things Answer Date of Assessment Author More than half the days 03/12/2025 9:13 AM EDT Sayra Duncan MA * Feeling down, depressed, or hopeless Answer Date of Assessment Author Several days 03/12/2025 9:13 AM EDT Joe Sprague MA * Trouble falling or staying asleep, or sleeping too much Answer Date of Assessment Author Several days 03/12/2025 9:13 AM EDT Joe Sprague MA * Feeling tired or having little energy Answer Date of Assessment Author Several days 03/12/2025 9:13 AM EDT Jeo Sprague MA * Poor appetite or overeating Answer Date of Assessment Author Not at all 03/12/2025 9:13 AM EDT Joe Sprague MA * Feeling bad about yourself - or that you are a failure or have let yourself or your family down Answer Date of Assessment Author Several days 03/12/2025 9:13 AM EDT Joe Sprague MA * Trouble concentrating on things, such as reading the newspaper or watching television Answer Date of Assessment Author Several days 03/12/2025 9:13 AM EDT Joe Sprague MA * Moving or speaking so slowly that other people could have noticed? Or the opposite - being so fidgety or restless that you have been moving around a lot more than usual. Answer Date of Assessment Author Several days 03/12/2025 9:13 AM EDT Joe Sprague MA * Thoughts that you would be better off or hurting yourself in some way Answer Date of Assessment Author Not at all 03/12/2025 9:13 AM EDT Joe Sprague MA * Patient Health Questionnaire-9 Score Answer Date of Assessment Author 8 03/12/2025 9:13 AM EDT Joe Sprague MA documented as of this encounter Plan of Treatment Not on file documented as of this encounter Visit Diagnoses Diagnosis Generalized abdominal pain- Primary Abdominal pain, generalized Healthcare maintenance Moderate persistent asthma without complication Encounter for immunization Encounter for vaccination documented in this encounter Additional Health Concerns Assessment Noted Time PHQ-9 Depression Total Score: 8 03/12/20 25 9:13 AM EDT documented as of this encounter Care Teams Patient Accounts Specialist Relationship Specialty Start Date End Date Marisa Sebastian FNP [address] [place] [address] PCP - General Family Medicine 05/13/22 documented as of this encounter
--- OUTSIDE RECORDS SUMMARY | 2025-03-12 09:23 | XMS_ITS | Encounter Summary ---
Author Organization [employer] Address [address] [facility] 7t [place] [address] Care Team Providers Care Counter Roller Name Role Phone Marisa Sebastian Primary Care Provider [phone] Reason for Visit * Reason Comments Med Refill Encounter Details Date Type Department Care Team ([facility] st Contact Info) Description 01/13/2025 Refill [facility] MEDICINE [address] [place] [address] Marisa Sebastian FNP [address] [place] [address] Moderate persistent asthma with acute exacerbation Social History Tobacco Use Types Packs/Day Years Used Date Smoking Tobacco: Every Day Cigarettes Passive Smoke Exposure: Current Smokeless Tobacco: Never Alcohol Use Standard Drinks/Week Comments Not Currently [...] as of this encounter Visit Diagnoses Diagnosis Moderate persistent asthma with acute exacerbation documented in this encounter Additional Health Concerns Assessment Noted Time PHQ-9 Depression Total Score: 3 11/15/19 24 8:53 AM EDT documented as of this encounter Care Teams Counter Roller Relationship Specialty Start Date End Date Marisa Sebastian FNP [address] [place] [id number] PCP - General Family Medicine 05/13/22 documented as of this encounter
--- OUTSIDE RECORDS SUMMARY | 2025-03-12 09:23 | XMS_ITS | Clinical Summary ---
Author Organization [facility] Address [address] [place] [address] Phone Care Team Providers Care Assisted Living Care Manager Name Role Phone Physician, No Pcp Primary Care Provider Unavaila ble Allergies No known active allergies Medications No known medications Encounters Date Type Department Care Team Description 12/24/2024 11:35 AM EDT - 12/24/2024 6:12 PM EDT Emergency [facility] Emergency [address] [place] [address] Daniel Baron MD Nausea and vomiting, unspecified vomiting type (Primary Dx) Discharge Disposition: Home or Self Care 12/22/2024 5:24 PM EDT - 12/22/2024 8:15 PM EDT Emergency [facility] Emergency [address] [place] [id number] Discharge Disposition: Left Against Medical Advice from Last 3 Months Medical History Medical History Date Comments Asthma Social History Tobacco Use Types Packs/Day Years Used Date Smoking Tobacco: Every Day Cigarettes Smokeless Tobacco: Current Tobacco Cessation:Ready to Q uit: No; Counseling Given: Not Answered Comments Unknown Sex and Gender Information Value Date Recorded Sex Assigned at Not on file Legal Sex Female 8:29 AM EST Gender Identity Not on file Sexual Orientation Not on file Obstetrics History Last Filed Vital Signs Vital Sign Reading Time Taken Comments Blood Pressure 148/96 12/24/2024 5:17 PM EDT Pulse 58 12/24/2024 5:17 PM EDT Temperature 36.5 C (97.7 F) 12/24/2024 1:28 PM EDT Respiratory Rate 15 12/24/2024 5:17 PM EDT Oxygen Saturation 99% 12/24/2024 5:17 PM EDT Inhaled Oxygen Concentration - - Weight 74.8 kg (165 lb) 12/24/2024 9:43 AM EDT Height 167.6 cm (5' 6 ) 12/24/2024 9:43 AM EDT Body Mass Index 26.63 12/24/2024 9:43 AM EDT Plan of Treatment Health Maintenance Due Date Last Done Comments HPV Vaccines (1 - 3-dose SCDM series) 2022 Depression Screening 06/12/2024 Hepatitis C Screening 12/22/2024 Social Influencers of Health Screening 12/22/2024 Influenza Vaccine (#1) 2025 4, 05/17/2023, 03/16/2022 Cervical Cancer Screening: Pap Smear 09/19/2027 09/18/2024 Cholesterol Screening (Lipid Panel) 12/17/2029 12/17/2024 DTaP,Tdap,and Td Vaccines (2 - Td or Tdap) 03/16/2032 03/16/2022 RSV Immunization Adult Patients (1 - 1-dose 75+ series) 2070 Pneumococcal Vaccine: Pediatrics (0 to 5 Years) and At-Risk Patients (6 to 49 Years) Completed 11/15/2023 COVID-19 Vaccine Completed 03/08/2024, 11/2022, 03/16/2022, Additional history exists Hepatitis B Vaccines Completed 08/07/2024, 03/08/2024, 11/01/2023 HIV Screening Completed 12/17/2024 HIB Vaccines Aged Out No longer eligi [...] to complete this topic RSV Immunization Patients Under 20 months Aged Out No longer eligible based on patient's age to complete this topic Varicella Vaccines Aged Out No longer eligible based on patient's age to complete this topic Procedures Procedure Name Priority Date/Time Associated Diagnosis Comments ECG ANNOTATED 12/25/2024 ECG 12-LEAD STAT 12/24/2024 12:36 PM EDT HCG, SERUM, QUALITATIVE STAT Add-on 12/24/2024 9:55 AM EDT CBC WITH AUTO DIFFERENTIAL STAT 12/24/2024 9:55 AM EDT LIPASE STAT 12/24/2024 9:55 AM EDT MAGNESIUM STAT 12/24/2024 9:55 AM EDT COMPREHENSIVE METABOLIC PANEL STAT 12/24/2024 9:55 AM EDT CBC AND DIFFERENTIAL STAT 12/24/2024 9:55 AM EDT CBC WITH AUTO DIFFERENTIAL STAT 12/22/2024 6:21 PM EDT LIPASE STAT 12/22/2024 6:21 PM EDT COMPREHENSIVE METABOLIC PANEL STAT 12/22/2024 6:21 PM EDT CBC AND DIFFERENTIAL STAT 12/22/2024 6:21 PM EDT from Last 3 Months Results * ECG-Annotated (12/25/2024) us Provider Onbase MD ECG ORDERABLES Final Result * ECG 12 lead (12/24/2024 12:36 PM EDT) Ventricular Rate ECG 57 BPM GEMUSE Atrial Rate 57 BPM GEMUSE P-R Interval 118 ms GEMUSE QRS Duration 98 ms GEMUSE Q-T Interval 470 ms GEMUSE QTc 457 ms GEMUSE P Wave [place] 48 degrees GEMUSE R [place] 78 degrees GEMUSE T [place] 66 degrees GEMUSE ECG Interpretation Sinus bradycardia with Premature atrial complexes with Aberrant conduction No previous ECGs available Confirmed by Imelda RODRIGUEZ YUFENG ([id number]) on 12/24/2024 7:34:42 PM GEMUSE 12/24/2024 12:3 6 PM EDT 12/24/2024 7:34 PM EDT us Daniel Baron MD ECG ORDERABLES Final Resul t GEMUSE * (ABNORMAL) CBC auto differential (12/24/2024 9:55 AM EDT) Only the most recent of2 resultswithin the time period is included. WBC 16.7(H) 4.8 - 10.8 K/mcL LAB HEMETOLOGY METHOD 12/24/2024 10:38 AM EDT [facility] RBC 4.70 3.80 - 4.80 M/mcL LAB HEMETOLOGY METHOD 12/24/2024 10:38 AM [facility] Hemoglobin 14.5 11.5 - 16.0 g/dL LAB HEMETOLOGY METHOD 12/24[facility]2024 10[facility] Hematocrit 44.2 35.0 - 47.0 % LAB HEMETOLOGY METHOD 12/24/2024 10:38 AM T [facility] MCV 93.4 79.0 - 98.0 FL LAB HEMETOLOGY METHOD 12/24/2024 10:38 AM [facility] MCH 30.7 27.0 - 32.0 pcg LAB HEMETOLOGY METHOD 12/24/2024 10:38 AM [facility] MCHC 32.8 32.0 - 37.0 g/dL LAB HEMETOLOGY METHOD 12/24/2024 10:38 AM [facility] RDW 12.3 11.0 - 15.0 % LAB HEMETOLOGY METHOD 12/24/2024 10:38 AM [facility] Platelets 276 130 - 400 K/mcL LAB HEMETOLOGY METHOD 12/24/2024 10:38 AM [facility] MPV 12.4(H) 7.0 - 11.0 FL LAB HEMETOLOGY METHOD 12/24/2024 10:38 AM [facility] NRBC 0.0 <1.0 % LAB HEMETOLOGY METHOD 12/24/2024 10:38 AM [facility] NRBC Absolute 0.00 <0.10 K/mcL LAB HEMETOLOGY METHOD 12/24/2024 10:38 AM [facility] Neutrophils Relative 74.2 % LAB HEMETOLOGY METHOD 12/24/2024 10:38 AM [facility] Lymphocytes Relative 19.2 % LAB HEMETOLOGY METHOD 12/24/2024 10:38 AM [facility] Monocytes Relative 5.0 % LAB HEMETOLOGY METHOD 12/24/2024 10:38 AM [facility] Eosinophils Relative 0.6 % LAB HEMETOLOGY METHOD 12/24/2024 10:38 AM [facility] Basophils Relative 0.5 % LAB HEMETOLOGY METHOD 12/24/2024 10:38 AM [facility] Immature Granulocytes Relative 0.5 % LAB HEMETOLOGY METHOD 12/24/2024 10:38 AM [facility] Neutrophils Absolute 12.36(H) 1.50 - 7.00 K/mcL LAB HEMETOLOGY METHOD 12/24/2024 10:38 AM [facility] Lymphocytes Absolute 3.20 1.00 - 5.00 K/mcL LAB HEMETOLOGY METHOD 12/24/2024 10:38 AM [facility] Monocytes Absolute 0.84 0.20 - 1.00 K/mcL LAB HEMETOLOGY METHOD 12/24/2024 10:38 AM [facility] Eosinophils Absolute 0.10 0.00 - 0.50 K/mcL LAB HEMETOLOGY METHOD 12/24/2024 10:38 AM EDT [facility] Basophils Absolute 0.08 0.00 - 0.20 K/[facility] LAB HEMETOLOGY METHOD 12/24/2024 10:38 AM EDT [facility] Immature Granulocytes Absolute 0.08(H) 0.00 - 0.03 K/[facility] LAB HEMETOLOGY METHOD 12/24/2024 10:38 AM EDT [facility] Blood Venous blood specimen / Unknown Venipuncture / Unknown 12/24/2024 9:55 AM EDT 12/24/2024 10:30 AM EDT Daniel Baron MD LAB BLOOD ORDERABLES Final Result Performing Organization Address [facility]/ZIP Co de Phone Number [facility] [address] [place] [address], [place] [phone] * HCG, serum, qualitative (12/24/2024 9:55 AM EDT) hCG Qual Negative Negative 12/24/2024 11:36 AM EDT [facility] Blood Venous blood specimen / Unknown Venipuncture / Unknown 12/24/2024 9:55 AM EDT 12/24/2024 10:30 AM EDT Kal Guaman MD LAB BLOOD ORDERABLES Final Resu lt [facility] [address] [place] [address], [place] [phone] * Magnesium (12/24/2024 9:55 AM EDT) Magnesium 1.9 1.9 - 2.6 mg/dL LAB CHEMISTRY METHOD 12/24/2024 10:59 AM EDT [facility] Blood Venous blood specimen / Unknown Venipuncture / Unknown 12/24/2024 9:55 AM EDT 12/24/2024 10:30 AM EDT Daniel Baron MD LAB BLOOD ORDERABLES Final Result Performing Organization Address [facility] Co de Phone Number [facility] [address] [place] [address], [place] [phone] * Lipase (12/24/2024 9:55 AM EDT) Only the most recent of2 resultswithin the time period is included. Pathologist [facility] Lipase 33 13 - 75 unit/L LAB CHEMISTRY METHOD 12/24/2024 10:59 AM EDT [facility] Blood Venous blood specimen / Unknown Venipuncture / Unknown 12/24/2024 9:55 AM EDT 12/24/2024 10:30 AM EDT Daniel Baron MD LAB BLOOD ORDERABLES Final Result Performing Organization Address [facility] de Phone Number [facility] [address] [place] [address], [place] [phone] * (ABNORMAL) Comprehensive metabolic panel (12/24/2024 9:55 AM EDT) Only the most recent of2 resultswithin the time period is included. Pathologist [facility] Sodium 138 133 - 145 mmol/L LAB CHEMISTRY METHOD 12/24/2024 10:59 AM EDT [facility] Potassium 3.6 3.5 - 5.5 mmol/L LAB CHEMISTRY METHOD 12/24/2024 10:59 AM EDT [facility] Chloride 104 96 - 110 mmol/L LAB CHEMISTRY METHOD 12/24/2024 10:59 AM EDT [facility] CO2 25 21 - 32 mmol/L LAB CHEMISTRY METHOD 12/24/2024 10:59 AM EDT [facility] Anion Gap 9 3 - 11 LAB CHEMISTRY METHOD 12/24/2024 10:59 AM EDT [facility] Glucose 130(H) 70 - 100 mg/dL LAB CHEMISTRY METHOD 12/24/2024 10:59 AM [facility] BUN 13 5 - 25 mg/dL LAB CHEMISTRY METHOD 12/24/2024 10:59 AM [facility] Creatinine 1.00 0.50 - 1.10 mg/dL LAB CHEMISTRY METHOD 12/24/2024 10:59 AM [facility] eGFR 78 >=60 mL/min/1. 73m2 LAB CHEMISTRY METHOD 12/24/2024 10:59 AM [facility] Comment:Calculation based on the Chronic Kidney Disease Epidemiology Collaboration (CKD-EPI) equation refit without adjustment for race. BUN/Creatinine Ratio 13.0 LAB CHEMISTRY METHOD 12/24/2024 10:59 AM [facility] Calcium 10.2 8.5 - 10.5 mg/dL LAB CHEMISTRY METHOD 12/24/2024 10:59 AM [facility] AST (SGOT) 15 10 - 42 unit/L LAB CHEMISTRY METHOD 12/24/2024 10:59 AM [facility] ALT (SGPT) 23 10 - 60 unit/L LAB CHEMISTRY METHOD 12/24/2024 10:59 AM [facility] Alkaline Phosphatase 62 42 - 121 unit/L LAB CHEMISTRY METHOD 12/24/2024 10:59 AM [facility] Total Protein 7.3 6.0 - 8.0 g/dL LAB CHEMISTRY METHOD 12/24/2024 10:59 AM [facility] Albumin 4.3 3.2 - 5.0 g/dL LAB CHEMISTRY METHOD 12/24/2024 10:59 AM [facility] Total Bilirubin 0.6 0.0 - 1.4 mg/dL LAB CHEMISTRY METHOD 12/24/2024 10:59 AM [facility] Blood Venous blood specimen / Unknown Venipuncture / Unknown 12/24/2024 9:55 AM EDT 12/24/2024 10:30 AM EDT us Daniel Baron MD LAB BLOOD ORDERABLES Final Result [facility] [address] [place] [address], [place] [phone] from Last 3 Months Insurance MEDICAID - [place] Care Teams Assisted Living Care Manager Relationship Specialty Start Date End Date Physician, No Pcp PCP - General 12/24/24
--- OUTSIDE RECORDS SUMMARY | 2025-03-12 09:23 | XMS_ITS | Encounter Summary ---
Author Organization [employer] Address [address] [facility] [address] [place] [address] Care Team Providers Care Dock Hand Name Role Phone Marisa Sebastian Primary Care Provider [phone] Encounter Details Date Type Department Care Team (Late st Contact Info) Description 12/19/2022 Orders Only [facility] [address] [place] [address], [place] [phone] Natividad Toure FNP [address] [place], [place] [phone] Seasonal allergies (Primary Dx) Social History Tobacco [...] documented as of this encounter Care Teams Dock Hand Relationship Specialty Start Date End Date Marisa Sebastian FNP [address] [place] [phone] PCP - General Family Medicine 05/13/22 documented as of this encounter
--- OUTSIDE RECORDS SUMMARY | 2025-03-12 09:23 | XMS_ITS | Encounter Summary ---
Author Organization [employer] Address [address] [facility] [address] [place] [address] Care Team Providers Care Subway Operator Name Role Phone Marisa Sebastian Primary Care Provider [phone] Encounter Details Date Type Department Care Team (Late st Contact Info) Description 10/04/[address] [facility] [address] [place] [address] Marisa Sebastian FNP [address] [place] [address] Social History Tobacco Use Types Packs/Day Years [...] documented as of this encounter Care Teams Subway Operator Relationship Specialty Start Date End Date Marisa Sebastian FNP [address] [place] [phone] PCP - General Family Medicine 05/13/22 documented as of this encounter
--- OUTSIDE RECORDS SUMMARY | 2025-03-12 09:23 | XMS_ITS | Clinical Summary ---
Author Organization [employer] Address [address] [facility] [address] [place] [address] Care Team Providers Care Manager Brand Name Role Phone Marisa Sebastian NARINDER Primary Care Provider [phone] Allergies No known active allergies Medications * This document contains information received from the source organization and may not represent a complete record from that organization. cetirizine (ZyrTEC) 10 MG tabletIndicatio ns:Seasonal allergies Take 1 tablet (10 mg) by mouth Once per day. 30 tablet 11 Active Additional Information Patient not taking.Reported on 03/13/2024 albuterol 0.63 MG/3ML nebulizer solutionIndicat ions:Moderate persistent asthma without complication Take 3 mL (0.63 mg) by nebulization every 6 (six) hours if needed for wheezing or shortness of breath. 75 mL 3 024 Active ibuprofen 600 MG tabletIndicatio ns:Cervicalgia Take 1 tablet (600 mg) by mouth every 6 (six) hours if needed for mild pain or moderate pain. 30 tablet 024 Active cloNIDine (Catapres) 0.1 MG tablet Take 0.1 mg by mouth if needed in the morning, at noon, and at bedtime. 024 Active clonazePAM (KlonoPIN) 0.5 MG tabletIndicatio ns:Mood disorder (CMS/HCC) TAKE 1 TABLET BY MOUTH ONCE DAILY NEEDED FOR ANXIETY (SEVERE) 025 Active QUEtiapine (SEROquel) 100 MG tabletIndicatio ns:Mood disorder (CMS/HCC) TAKE 1/2 TABLET BY MOUTH EVERY MORNING AND 1 TABLET AT BEDTIME 025 Active cyclobenzaprine (Flexeril) 10 MG tabletIndicatio ns:Low back pain at multiple sites One tab po at bedtime prn pain of muscles, do not drive with medication 30 tablet 1 025 Active albuterol (Ventolin HFA) 108 (90 Base) MCG/ACT inhalerIndicati ons:Moderate persistent asthma with acute exacerbation INHALE 2 PUFFS BY MOUTH EVERY 4-6 HOURS NEEDED FOR WHEEZING OR SHORTNESS OF BREATH 18 g 3 025 Active diphenhydrAMINE (BENADryl) 25 MG tablet Take 1 tablet (25 mg) by mouth every 6 (six) hours if needed for itching. 30 tablet 025 Active triamcinolone (Kenalog) 0.1 % ointment Apply topically if needed in the morning and at bedtime (Itching, bites,). Use for up to 1-2 weeks. 15 g 1 025 Active albuterol (2.5 MG/3ML) 0.083% nebulizer solutionIndicat ions:Moderate persistent asthma with acute exacerbation INHALE 1 AMPULE USING A NEBULIZER EVERY 4 TO 6 HOURS NEEDED FOR WHEEZING OR SHORTNESS OF BREATH 90 mL 2 025 Active hydrocortisone 2.5 % cream APPLY A PEA SIZED AMOUNT TO AFFECTED AREA(S) TWICE DAILY FOR 1 WEEK 20 g 1 025 Active fluticasone (Flonase) 50 MCG/ACT nasal spray INSTILL 1-2 SPRAYS IN EACH NOSTRIL ONCE DAILY NEEDED 48 g 3 025 Active fluticasone furoate (Arnuity Ellipta) 200 MCG/ACT inhalerIndicati ons:Moderate persistent asthma with acute exacerbation INHALE 1 PUFF BY MOUTH EVERY DAY AT THE SAME TIME. Rinse mouth with water after use to reduce aftertaste and incidence of candidiasis. Do not swallow. 30 each 3 025 Active fluticasone (Flonase) 50 MCG/ACT nasal spray INSTILL 1-2 SPRAYS IN EACH NOSTRIL ONCE DAILY NEEDED 48 g 3 024 2024 Discontinued fluticasone furoate (Arnuity Ellipta) 200 MCG/ACT inhalerIndicati ons:Moderate persistent asthma without complication INHALE 1 PUFF BY MOUTH EVERY DAY AT THE SAME TIME. Rinse mouth with water after use to reduce aftertaste and incidence of candidiasis. Do not swallow. 30 each 3 025 2024 Discontinued(R eorder (will not trigger notification to Pharmacy)) predniSONE (Deltasone) 20 MG tabletIndicatio ns:Moderate persistent asthma with acute exacerbation Take 2 tablets (40 mg) by mouth Once per day for 5 days. 10 tablet 025 2024 Active Problems Problem Noted Date Diagnosed Date Generalized abdominal pain 12/28/2024 Assessment & Plan (12/28/2024 12:09 PM EDT): I advise patient to avoid NSAIDs, spicy and acid food She may take her omeprazole 20 mg twice daily I will order a CT of her abdomen patient will be contacted with results but strict ED precautions were reviewed with her in light of the leukocytosis if abdominal pain is persistent or worse she will have to go to the emergency room again to be reevaluated I refer patient to gastroenterology Low back pain at multiple sites 03/02/2024 Assessment & Plan (09/19/2024 4:29 PM EDT): - Continues with flexeril PRN - Encouraged combination pharm and non-pharm tx modalities Right hip pain 02/26/2024 Assessment & Plan [...] precautions. Mood disorder 11/04/2023 Assessment & Plan (09/19/2024 4:30 PM EDT): - Previous diagnoses of Bipolar disorder II, MDD, anxiety, and PTSD - Symptom improvement s/p med adjustments - Following with psych prescriber and therapist through [facility] Cont Seroquel 50mg QAM and 100mg nightly. Clonazepam 0.5mg daily PRN TSH WNL October 2023 Medical release form signed to communicate with psych team October 2023 Follow up with therapist/psych prescriber as scheduled Crisis information/safety planning Assessment & Plan (11/19/2023 6:14 PM EDT): [...] scheduled Crisis information/safety planning Tobacco dependence 07/04/2023 Assessment & Plan (09/19/2024 4:31 PM EDT): - smoking cessation encouraged Healthcare maintenance 05/16/2023 Overview (03/12/2025): Last PE: 09/18/24 Dental: referral to [facility] Dental 11/01/23 Pap: NILM, HPV neg 09/18/24 Mammo: starting at 40 y/o MDD (major depressive disorder) 04/04/2023 Assessment & [...] and ways to cope with life stressors. [facility] crisis line provided. At this time Megan Jenkins meets criteria for Visit Diagnoses: Problem List Items Addressed This Visit Other MDD (major depressive disorder) Unemployment Anxiety Patient ready to address current needs Yes Strengths include readiness and determination to change. PLAN: 1. Follow up with [facility]: Not recommended for follow-up 2. Patient goal is to reconnect with services for individual therapy. 3. Behavioral Recommendations a. Referral for OP individual therapy b. Follow-up with PCP if needed c. Incorporate mindfulness techniques into daily routine d. Contact [facility] program with [facility] if sooner appointment [...] and ways to cope with life stressors. [facility] crisis line provided. At this time Megan Jenkins meets criteria for Visit Diagnoses: Problem List Items Addressed This Visit Other MDD (major depressive disorder) Unemployment Anxiety Patient ready to address current needs Yes Strengths include readiness and determination to change. PLAN: 1. Follow up with [facility]: Not recommended for follow-up 2. Patient goal is to reconnect with services for individual therapy. 3. Behavioral Recommendations a. Referral for OP individual therapy b. Follow-up with PCP if needed c. Incorporate mindfulness techniques into daily routine d. Contact [facility] program with [facility] if sooner appointment is needed or urgent care/crisis. Moderate persistent asthma without complication 04/26/2022 Overview (01/24/2024): Controller: Arnuity Ellipta 200mcg/act 1 puff BID Rescue: Albuterol PRN Nebulizer received 2023 Assessment & Plan (09/19/2024 4:31 PM EDT): - well controlled, cont current therapy Assessment & Plan (06/01/2024 10:53 AM EST): [...] Problem Noted Date Diagnosed Date Resolved Date Upper abdominal pain 12/28/2024 025 Unemployment 04/04/2023 09/18/2024 Assessment & Plan (04/05/2023 [...] and ways to cope with life stressors. [facility] crisis line provided. At this time Megan Jenkins meets criteria for Visit Diagnoses: Problem List Items Addressed This Visit Other MDD (major depressive disorder) Unemployment Anxiety Patient ready to address current needs Yes Strengths include readiness and determination to change. PLAN: 1. Follow up with [facility]: Not recommended for follow-up 2. Patient goal is to reconnect with services for individual therapy. 3. Behavioral Recommendations a. Referral for OP individual therapy b. Follow-up with PCP if needed c. Incorporate mindfulness techniques into daily routine d. Contact [facility] program with [facility] if sooner appointment is needed or urgent care/crisis. Encounters Date Type Department Care Team Description 03/12/2025 9:00 AM EDT Office Visit [facility] [address] [place] [phone] Marisa Sebastian FNP Generalized abdominal pain (Primary Dx); Healthcare maintenance; Moderate persistent asthma without complication; Encounter for immunization; Encounter for vaccination 03/12/2025 Travel 02/24/2025 6:20 PM EDT Office Visit [facility] [address] [place] [phone] Tashi Perez MD Moderate persistent asthma with acute exacerbation 02/24/2025 Refill [facility] [address] [place] [phone] Natividad Toure FNP 01/20/2025 Telephone [facility] [address] [place] [phone] Ekaterina Chau CNM 01/17/2025 Telephone [facility] [address] [place] [phone] Marisa Sebastian FNP chartprep 01/13/2025 Refill [facility] [address] [place] [phone] Marisa Sebastian FNP Moderate persistent asthma with acute exacerbation 01/01/2025 Orders Only [facility] [address] [place] [phone] Dayana Ledesma MD Generalized abdominal pain (Primary Dx) 12/31/[address] [phone] Marisa Sebastian FNP Referral 12/28/2024 10:00 AM EDT Office Visit [facility] [address] [place] [phone] Dayana Ledesma MD Generalized abdominal pain 12/28/2024 Travel 12/27/2024 Results Follow-Up [facility] [address] [place], [place] [phone] Marisa Sebastian FNP Lipid Panel, Standard, TSH with Reflex to Free T4, Comprehensive Metabolic Panel, Additional followed-up results: 3 12/26/[address] [phone] Marisa Sebastian FNP Low back pain at multiple sites 12/17/2024 Results Follow-Up [facility] [address] [place] [phone] Tashi Perez MD CBC auto differential, Hemoglobin A1c, C-reactive Protein, Additional followed-up results: 4 12/17/2024 Travel from Last 3 Months Immunizations Immunization Administration Dates Next Due Hep B, adult 08/07/2024,03/08/2024,11/01/2023 Influenza injectable quadriv alent preservative free 05/17/2023,03/16/2022 Influenza, seasonal, injecta ble, preservative free 03/12/2025,03/08/2024 Pfizer Covid-19 Vaccine 12+ 03/12/2025,0 03/08/2024,05/17/2023,2020,05/20/2021 Pfizer Covid-19 Vaccine 12+ Bivalent 03/16/2022 Pneumococcal [...] your housing situation today? I have dario legih 07/20/[address] you li [...] Health Questionnaire-2 Score 3 03/12/2025 Comments No Intention Date Recorded Wants to become (finding) 10/14 Sex and Gender Information Value Date Recorded [...] Mass Index 25.99 03/12/2025 9:06 AM EDT Plan of Treatment Health Maintenance Due Date Last Done Comments Dental Prophylaxis 1995 Dental X-Ray: Bitewings 1995 Dental X-Ray: Full Mouth 1995 Alcohol/Substance Use Screening 2007 HPV Vaccines (1 - 3-dose series) 2010 SDOH Screening 07/20/2024 07/20/2023 Dental Oral Exam 09/25/2024 03/26/2024 Depression Screening 11/14/2024 11/15/2023, 11/15/19 24 Disability Screening 09/19/2025 09/19/2024 Family Planning (PISQ) 10/14/2025 10/14/2024 Tobacco Screening 03/12/2026 03/12/2025 Pap Smear 09/19/2027 09/18/2024 Lipid Panel 12/17/2029 12/17/2024, 07/20/2023 DTaP/Tdap/Td Vaccines (2 - Td or Tdap) 03/16/2032 03/16/2022 Zoster Vaccines (1 of 2) 2045 RSV Patients and Patients Aged 60 years or older (1 - 1-dose 75+ series) 2070 Pneumococcal Vaccine: Pediatrics (0 to 5 Years) and At-Risk Patients (6 to 49) Years Completed 11/15/2023 Hepatitis B Vaccines Completed 08/07/2024, 03/08/2024, 11/01/2023 HIV Screening Completed 12/17/2024 Hepatitis C Screening Completed 12/17/2024, 024 COVID-19 Vaccine Completed 03/12/2025, , 05/17/2023, Additional history exists Influenza Vaccine Completed 03/12/2025, , 05/17/2023, Additional history exists HIB Vaccines Aged Out No longer eligi [...] Procedure Name Priority Date/Time Associated Diagnosis Comments XR CHEST 2 VIEWS Routine 03/12/2025 9:00 AM EDT Moderate persistent asthma with acute exacerbation HEMOGLOBIN A1C Routine 12/17/2024 3:45 PM EDT Pain in both hands HIV 1/2 ANTIGEN/ANTIBODY, FOURTH GENERATION W/RFL Routine 12/17/2024 2:54 PM EDT Encounter for routine history and physical examination of adult RPR (MONITOR) W/REFL TITER Routine 12/17/2024 2:54 PM EDT Encounter for routine history and physical examination of adult HEPATITIS C VIRAL RNA, QUANTITATIVE, REAL-TIME PCR Routine 12/17/2024 2:54 PM EDT Encounter for routine history and physical examination of adult COMPREHENSIVE METABOLIC PANEL Routine 12/17/2024 2:54 PM EDT Encounter for routine history and physical examination of adult TSH W/REFLEX TO FT4 Routine 12/17/2024 2 :54 PM EDT Encounter for routine history and physical examination of adult LIPID PANEL, STANDARD Routine 12/17/2024 2:54 PM EDT Encounter for routine history and physical examination of adult VITAMIN D,25-OH,TOTAL,IA Routine 12/17/2024 2:54 PM EDT Pain in both hands VITAMIN B12/FOLATE, SERUM PANEL Routine 12/17/2024 2:54 PM EDT Pain in both hands C-REACTIVE PROTEIN Routine 12/17/2024 2: 54 PM EDT Pain in both hands SED RATE BY MODIFIED WESTERGREN Routine 12/17/2024 2:54 PM EDT Pain in both hands RHEUMATOID FACTOR Routine 12/17/2024 2:5 4 PM EDT Pain in both hands CBC WITH AUTO DIFFERENTIAL Routine 12/17/2024 2:54 PM EDT Pain in both hands PAP SMEAR Routine 09/18/2024 9:56 AM EDT Cervical cancer screening COMPREHENSIVE ORAL EVALUATION - NEW OR ESTABLISHED PATIENT Routine 03/26/2024 2:30 PM EDT Encounter for dental examination and cleaning with abnormal findings from Last 3 Months or Most Recently Relevant to Health Maintenance Results * XR Chest 2 Views (03/12/2025 9:00 AM EDT) Anatomical Region Laterality Modality Chest Radiographic Beatrice ging 03/12/2025 9:00 AM EDT Narrative 03/12/2025 9:05 [place] [address] XRay Report Signed Patient: Megan Jenkins MR#: [id number] : 1995 Acct:[id number] Age/Sex: 29 / F ADM Date: 03/12/25 Loc: HO.HHCX Attending Dr: Tashi Perez MD Ordering Physician: Tashi Perez MD Date of Service: 03/12/25 Procedure(s): XR chest 2V Accession Number(s): [id number] cc: Tashi Perez MD Reason for Exam: 1-week duration of worsening SOB and wheezing. EXAMINATION: XR CHEST CLINICAL INFORMATION: 1-week duration of worsening SOB and wheezing. COMPARISON: 07/04/2023. TECHNIQUE: 2 views of the chest were obtained. FINDINGS: The cardiac, hilar, and mediastinal contours are normal. The lungs are clear bilaterally. There is no pneumothorax or pleural effusion. There is no focal osseous or soft tissue abnormality. XR/XR chest 2V IMPRESSION: Normal chest. Electronically signed by: Len Michel MD 03/12/2025 09:02 AM EDT RP Dictated By: Len Michel MD Signed By: <Electronically signed by Len Michel MD in OV> 03/12/25901 DD/ 9 TD/TT: 03/12/25899 Fire Support Specialist: Procedure Note Donotuseinterpreter, Image - 03/12/2025 [place] [address] XRay Report Signed Patient: Shubham Jenkins#: [id number] : 1995Acct:[id number] Age/Sex: FADM Date: 03/12/25 Loc: HO.HHCX Attending Dr: Tashi Perez MD Ordering Physician: Tashi Perez MD Date of Service: 03/12/25 Procedure(s): XR chest 2V Accession Number(s): [id number] cc: Tashi Perez MD Reason for Exam: 1-week duration of worsening SOB and wheezing. EXAMINATION: XR CHEST CLINICAL INFORMATION: 1-week duration of worsening SOB and wheezing. COMPARISON: 07/04/2023. TECHNIQUE: 2 views of the chest were obtained. FINDINGS: The cardiac, hilar, and mediastinal contours are normal. The lungs are clear bilaterally. There is no pneumothorax or pleural effusion. There is no focal osseous or soft tissue abnormality. XR/XR chest 2V IMPRESSION: Normal chest. Electronically signed by: Len Michel MD 03/12/2025 09:02 AM EDT RP Dictated By: Len Michel MD Signed By: <Electronically signed by Len Michel MD in OV> 03/12/25901 DD/ 9 TD/TT: 03/12/25899 Fire Support Specialist: Tashi Perez MD IMG XR PROCEDURES Final Result * Hemoglobin A1c (12/17/2024 3:45 PM EDT) Hemoglobin A1c 5.1 <6.0 % [facility] Comment:Hemoglobin A1C Refer ence Range Adults: 4.8 - 6.0 % Non diabetic: < 6.0 % Goal: < 7.0 %Additional Action Suggested: > 8.0 %Note: Hemoglobin A1c results are invalid for patients with abnormal amounts of HbF. Blood transfusions may impact the HbA1c concentration in the patient sample. Estimated Average Glucose 100 mg/dL [facility] Comment:eAG = Estimated ave rage glucose which is %A1C expressed asaverage glucose, using the formula of the H3L-LmdcdruMbsynng Glucose study (ADAG), Diabetes Care, Vol.31,#8,Jan. 2007 Blood Venous blood specimen / Unknown 12/17/2024 3:45 PM EDT 12/17/2024 5:13 PM EDT Tashi Perez MD LAB BLOOD ORDERABLES Final Resul t [facility] [address] [place] [phone] * Vitamin D, 25-Hydroxy, Total, Immunoassay (12/17/2024 2:54 PM EDT) Vitamin D 25-OH Total 52.0 >30 ng/mL [facility] Comment: Health Based Reference Values*< 20 ng/mL Rgbgimtng61-61 ng/mL Insufficient> 30 ng/mL Sufficient*Donnie BATISTA. N Engl J Med. 2007;357:266-280There is no well-established upper level of normal vitamin Dlevels. Some laboratories use 50 ng/mL as an upper limit ofnormal. However, toxicity is patient-dependent and may occurat any level. Careful correlation with the patient'spresentation is necessary and, if there is concern forvitamin D toxicity, treatment should be consideredirrespective of the serum level.Care must be taken in interpreting Vitamin D results fromdifferent laboratories and methodologies. Published datademonstrated that results from patients undergoinghemodialysis may show a negative bias when tested withvarious automated 25-OH vitamin D assays when compared toLC-MS/MS.When testing samples from patients whose predominant form ofVitamin D is Vitamin D2, such as patients receiving VitaminD2 supplementation, results that are subtherapeutic shouldbe confirmed with another method such as LC-MS/MS. Blood Venous blood specimen / Unknown 12/17/2024 2:54 PM EDT 12/17/2024 5:13 PM EDT Tashi Perez MD LAB BLOOD ORDERABLES Final Resul t Performing Organization Address [facility]/ZIP Co de Phone Number [facility] [address] [place] [phone] * Vitamin B12/Folate, Serum Panel (12/17/2024 2:54 PM EDT) Vitamin B12 342 200 - 900 pg/mL [facility] Comment:NORMAL 200-900 PG/M L INDETERMINATE 160-199 PG/ML DEFICIENT < 160 PG/ML Folate 8.9 > or = 4.0 ng/mL [facility] Comment:Reference Values:> o r = 4.0 ng/mL< 4.0 ng/mL suggests folate deficiency Methotrexate, aminopterin and folinic acid(leucovorin) are chemotherapeutic agents whose molecularstructures are similar to folate; therefore, the Architectfolate assay cannot be used for patients using these drugs. Blood Venous blood specimen / Unknown 12/17/2024 2:54 PM EDT 12/17/2024 5:13 PM EDT Tashi Perez MD LAB BLOOD ORDERABLES Final Resul t Performing Organization Address [facility] Co de Phone Number [facility] [address] [place] [phone] * TSH with Reflex to Free T4 (12/17/2024 2:54 PM EDT) TSH reflex Free T4 2.96 0.32 - 4.0 uIU/mL [facility] Blood 12/17/2024 2:54 PM EDT 12/17/2024 5:13 PM EDT Marisa Sebastian [facility] LAB BLOOD ORDERABLES Final Res ult Performing Organization Address [facility] de Phone Number [facility] [address] [place] [phone] * Hepatitis C Viral RNA, Quantitative, Real-Time PCR (12/17/2024 2:54 PM EDT) Pathologist [facility] Hepatitis C Viral Load <15 NOT DETECTED NOT DETECTED IU/mL [facility] HCV Log PCR <1.18 NOT DETECTED NOT DETECTED Log IU/mL [facility] Comment:For additional infor juan luis, please refer [email or web address].[employer]/faq/SHH23l8(This link is being provided for informational/educational purposes only.)THIS TEST WAS PERFORMED AT:[facility] [place] [phone] BLEDSOE MD Blood 12/17/2024 2:54 PM EDT 12/17/2024 5:13 PM EDT Marisa Sebastian [facility] BLOOD ORDERABLES Final Res ult Performing Organization Address [facility] de Phone Number [facility] [address] [place] [phone] * (ABNORMAL) CBC auto differential (12/17/2024 2:54 PM EDT) Pathologist [facility] White Blood Count 7.4 4.8 - 10.8 X10*3/uL [facility] Red Blood Count 4.63 4.20 - 5.50 X10*6/uL [facility] Hemoglobin 14.3 12.0 - 16.0 g/dl [facility] Hematocrit 43.3 37.0 - 47.0 % [facility] Mean Corpuscular Volume 93.5 80.0 - 98.0 fL [facility] Mean Corpuscular Hemoglobin 30.9 27.0 - 33.0 pg [facility] Mean Corpuscular HGB Conc 33.0 31.0 - 35.0 g/dl [facility] Red Cell Distribution Width 12.7 11.0 - 16.0 % [facility] Platelet Count 247 160 - 400 X10*3/uL [facility] Mean Platelet Volume 12.3 9.4 - 12.3 fL [facility] Neutrophils Percent Auto 48.7 45 - 73 % [facility] Imm Gran Pct Auto 0.4 0.0 - 0.4 % [facility] Lymphocytes Percent Auto 41.9(H) 20 - 40 % [facility] Monocytes Percent Auto 6.1 2 - 11 % [facility] Eosinophils Percent Auto 2.4 0 - 4 % [facility] Basophils Percent Auto 0.5 0 - 2 % [facility] NRBC Pct Auto 0.0 0.0 - 0.2 /100WBC [facility] Neutrophils Absolute Auto 3.6 2.0 - 8.3 x10*3/uL [facility] Imm Gran Abs Auto 0.03 0.00 - 0.03 X10*3/uL [facility] Lymphocytes Absolute Auto 3.1 1.2 - 4.9 X10*3/uL [facility] Monocytes Absolute Auto 0.5 0.1 - 1.2 X10*3/uL [facility] Eosinophils Absolute Auto 0.2 0.0 - 0.4 X10*3/uL [facility] Basophils Absolute Auto 0.0 0.0 - 0.2 X10*3/uL [facility] NRBC Abs Auto 0.000 0.0 - 0.012 X10*3/uL [facility] Blood Venous blood specimen / Unknown 12/17/2024 2:54 PM EDT 12/17/2024 5:13 PM EDT us Tashi Perez MD LAB BLOOD ORDERABLES Final Resul t [facility] [address] [place] [phone] * RPR (Monitor) with Reflex to??Titer (12/17/2024 2:54 PM EDT) RPR (Monitor) w/Refl Titer NON-REACTI VE NON-REACT ALEXIS [facility] Comment:THIS TEST WAS PERFOR MED AT:[facility] [place] [phone] BLEDSOE MD Rapid Plasma Reagin Ab Titer TNP [facility] Blood Venous blood specimen / Unknown 12/17/2024 2:54 PM EDT 12/17/2024 5:13 PM EDT Marisa Sebastian [employer]ELTING [employer]INE[employer] LAB BLOOD ORDERABLES Final Res ult Performing Organization Address [facility] de Phone Number [facility] [address] [place] [phone] * HIV-1/2 Antigen and Antibodies, Fourth Generation, with Reflexes (12/17/2024 2:54 PM EDT) HIV AB/AG Nonreactive Nonreactive [facility] Comment:HIV-1 p24 Ag and/or HIV-1/HIV-2 Ab not detected.A test result that is nonreactive does not exclude thepossibility of exposure to or infection with HIV-1 and/orHIV-2. Nonreactive results in this assay for individualswith prior exposure to HIV-1 and/or HIV-2 may be due toantigen and antibody levels that are below the limit ofdetection of this assay.[employer] [employer] HIV Ag/Ab Combo assay result andsupplemental assay results should be interpreted inconjunction with the patient's clinical presentation,history and other laboratory results. If the results areinconsistent with clinical evidence, additional testing issuggested to confirm the result. Blood Venous blood specimen / Unknown 12/17/2024 2:54 PM EDT 12/17/2024 5:13 PM EDT Marisa Sebastian SMELTING ENGINEER LAB BLOOD ORDERABLES Final Res ult Performing Organization Address [facility] Co de Phone Number [facility] [address] [place] [phone] * Sed Rate by Modified Shanna (12/17/2024 2:54 PM EDT) Erythrocyte Sedimentation Rate 3 0 - 20 MM/HR [facility] Comment:Patients with polycy themia and many hemoglobin abnormalitiesmay have depressed sed rates whereas patients with anemiamay have elevated sed rates. Blood Venous blood specimen / Unknown 12/17/2024 2:54 PM EDT 12/17/2024 5:13 PM EDT Tashi Perez MD LAB BLOOD ORDERABLES Final Resul t Performing Organization Address [facility] Co de Phone Number [facility] [address] [place] [address] [phone] * Rheumatoid Factor (12/17/2024 2:54 PM EDT) Rheumatoid Factor <13.0 <15.0 IU/mL [facility] Blood Venous blood specimen / Unknown 12/17/2024 2:54 PM EDT 12/17/2024 5:13 PM EDT Tashi Perez MD LAB BLOOD ORDERABLES Final Resul t Performing Organization Address [facility] Co de Phone Number [facility] [address] [place] [address] [phone] * C-reactive Protein (12/17/2024 2:54 PM EDT) C Reactive Protein 0.14 < or = 0.50 mg/dL [facility] Blood Venous blood specimen / Unknown 12/17/2024 2:54 PM EDT 12/17/2024 5:13 PM EDT us Tashi Perez MD LAB BLOOD ORDERABLES Final Resul t Performing Organization Address [facility] Co de Phone Number [facility] [address] [place] [phone] * Lipid Panel, Standard (12/17/2024 2:54 PM EDT) Triglycerides 90 <150 mg/dL [facility] Comment:Desirable Triglyceri de: less than 150 mg/dLBorderline High Triglyceride 150-199 mg/dLHigh Triglyceride: 200-499 mg/dLVery High Triglyceride: greater than or equal to 5OO mg/dL Cholesterol 163 <200 mg/dL [facility] Comment:Desirable Cholestero l: less than 200 mg/dLBorderline High Cholesterol: 200-239 mg/dLHigh Cholesterol: greater than 239 mg/dL LDL Cholesterol Calculated 94 <100 mg/dL [facility] Comment:Desirable LDL: less than 100 mg/dLNear Optimal/Above Optimal LDL: 110- 129 mg/dLBorderline High LDL: 130-159 mg/dLHigh LDL: 160-189 mg/dLVery High LDL: greater than or equal to 190 mg/dL HDL Cholesterol 51 >40 mg/dL [facility] Comment:Desirable HDL: great er than 40 mg/dL Note: This HDL assay may give artificially low results in patients with liver disease. Blood Venous blood specimen / Unknown 12/17/2024 2:54 PM EDT 12/17/2024 5:13 PM EDT us Marisa Sebastian SMELTING ENGINEER LAB BLOOD ORDERABLES Final Res ult Performing Organization Address [facility]/ZIP Co de Phone Number [facility] [address] [place] [phone] * (ABNORMAL) Comprehensive Metabolic Panel (12/17/2024 2:54 PM EDT) Sodium 140 135 - 145 mmol/L [facility] Potassium 3.9 3.3 - 5.1 mmol/L [facility] Chloride 107 96 - 108 mmol/L [facility] Carbon Dioxide 26 22 - 29 mmol/L [facility] Anion Gap 11(L) 12 - 20 [facility] Urea Nitrogen (BUN) 12 9 - 16 mg/dL [facility] Creatinine, Serum 0.80 0.5 - 1.4 mg/dL [facility] Estimated Glomerular Filt Rate >60 [facility] Comment:Chronic Kidney Disea se: Estimated GFR < 60 mL/min/1.46d3Aucxma Kidney Disease: Estimated GFR < 15 mL/min/1.73m2 Glucose 95 60 - 115 mg/dL [facility] Calcium 8.9 8.4 - 10.2 mg/dL [facility] Bilirubin, Total 0.3 0.0 - 1.0 mg/dL [facility] Aspartate Amino Transferase 20 5 - 31 U/L [facility] Alanine Aminotransferase 15 0 - 31 U/L [facility] Total Protein 7.1 6.5 - 8.0 g/dL [facility] Albumin Level 4.6 3.5 - 5.0 g/dL [facility] Alkaline Phosphatase 62 39 - 117 U/L [facility] Blood Venous blood specimen / Unknown 12/17/2024 2:54 PM EDT 12/17/2024 5:13 PM EDT us Marisa Sebastian SMELTING ENGINEER LAB BLOOD ORDERABLES Final Res ult [facility] [address] [place] [phone] * Pap Smear (09/18/2024 9:56 AM EDT) Swab 09/18/2024 9:56 AM EDT 09/19/2024 6:45 AM EDT Narrative [facility] - 09/23/2024 9:23 AM EDT ----- ------- Name: Megan Jenkins Age/Sex: 29/F : 1995 Unit#: [id number] Attend Dr: Marisa Sebastian Re09/18/24 Status: DEP REF Location: [facility] Disch: ----- ------- SPEC : [id number] RECD: 09/19/24 STATUS: KAJAL JURADO NUM: [id number] COURTNEY: 09/18/[address] [facility] [address]: Marisa Sebastian ENTERED: 09/19/24 SP TYPE: Pap Smr OTHR : ORDERED: Pap Smear Interpretation Satisfactory for evaluation. Negative for intraepithelial lesion or malignancy. Coccobacilli consistent with shift in vaginal jodee. HPV High Risk: Negative HPV Genotyping 16: Negative HPV Genotyping 18: Negative Clinical Information LMP: 08/27/24 Previous PAP test:>5 years Other surgery: Other history: Material Received ThinPrep-Cervical ----- ------- Signed (signature on file) JUANITA Jolley (ASCP) 09/23/24 [id number] ----- ------- END OF REPORT Marisa Santoshmaryan [facility] CYTOLOGY ORDERABLES Final Result [facility] [address] [place] [address] [phone] from Last 3 Months or Most Recently Relevant to Health Maintenance Insurance [facility] [employer] Care Teams Manager Brand Relationship Specialty Start Date End Date Marisa Sebastian FNP [address] [place] [phone] PCP - General Family Medicine 05/13/22
--- OUTSIDE RECORDS SUMMARY | 2025-03-12 09:23 | XMS_ITS | Encounter Summary ---
Author Organization [employer] Address [address] [facility] [address] [place] [address] Care Team Providers Care Memorial Mason Name Role Phone Marisa Sebastian Primary Care Provider [phone] Reason for Visit * Reason Comments Med Refill Encounter Details Date Type Department Care Team ([facility] st Contact Info) Description 12/26/2024 Refill [facility] [address] [place] [address] Marisa Sebastian FNP [address] [place] [address] Low back pain at multiple sites Social History Tobacco Use Types Packs/Day Years [...] as of this encounter Visit Diagnoses Diagnosis Low back pain at multiple sites documented in this encounter Additional Health Concerns Assessment Noted Time PHQ-9 Depression Total Score: 3 11/15/19 24 8:53 AM EDT documented as of this encounter Care Teams Memorial Mason Relationship Specialty Start Date End Date Marisa Sebastian FNP [address] [place] [phone] PCP - General Family Medicine 05/13/22 documented as of this encounter
--- OUTSIDE RECORDS SUMMARY | 2025-03-12 09:23 | XMS_ITS | Encounter Summary ---
Author Organization [employer] Address [address] [facility] [address] [place] [address] Care Team Providers Care Knobber Name Role Phone Marisa Sebastian PRODUCT CONSULTANT Primary Care Provider [phone] Encounter Details Date Type Department Care Team (Late st Contact Info) Description 10/10/2024 Orders Only [facility] [address] [place], [place] [phone] Dao Cramer MD [address] [place], [place] [phone] Social History Tobacco Use Types Packs/Day Years [...] documented as of this encounter Care Teams Knobber Relationship Specialty Start Date End Date Marisa Sebastian FNP [address] [place] [phone] PCP - General Family Medicine 05/13/22 documented as of this encounter
--- OUTSIDE RECORDS SUMMARY | 2025-03-12 09:23 | XMS_ITS | Encounter Summary ---
Author Organization [employer] Address [address] [facility] [address] [place] [address] Care Team Providers Care Journalism Intern Name Role Phone Marisa Sebastian Primary Care Provider [phone] Reason for Visit * Reason Comments Med Refill Encounter Details Date Type Department Care Team ([facility] st Contact Info) Description 01/12/2023 Refill [facility] [address] [place], [place] [phone] Alejandra Puentes FNP [address] [place] [phone] Asthma in adult, mild persistent, with acute [...] documented as of this encounter Care Teams Journalism Intern Relationship Specialty Start Date End Date Marisa Sebastian FNP [address] [place] [address] PCP - General Family Medicine 05/13/22 documented as of this encounter
--- OUTSIDE RECORDS SUMMARY | 2025-03-12 09:23 | XMS_ITS | Encounter Summary ---
Author Organization [employer] Address [address] [facility] [address] [place] [address] Care Team Providers Care Assistant Librarian Name Role Phone Marisa Sebastian MARKETING TECHNOLOGIST Primary Care Provider [phone] Reason for Visit * Reason Comments Med Refill Encounter Details Date Type Department Care Team ([facility] st Contact Info) Description 04/06/2023 Refill [facility] [address] [place], [place] [phone] Name, MD Nav [address] [place] [address] Social History Tobacco Use Types Packs/Day Years [...] documented as of this encounter Care Teams Assistant Librarian Relationship Specialty Start Date End Date Marisa Sebastian FNP [address] [place] [phone] PCP - General Family Medicine 05/13/22 documented as of this encounter
--- OUTSIDE RECORDS SUMMARY | 2025-03-12 09:23 | XMS_ITS | Encounter Summary ---
Author Organization [employer] Address [address] [facility] [address] [place] [address] Care Team Providers Care Concrete Grinder Operator Name Role Phone Marisa Sebastian TOBACCO SIZER Primary Care Provider [phone] Encounter Details Date Type Department Care Team (Latest Contact Info) Description 03/12/2025 Travel Social History Tobacco Use Types Packs/Day [...] PM EST documented as of this encounter Functional Status * Over the [...] 9:13 AM EDT Joe Sprague [place] * Poor appetite or overeating [...] documented as of this encounter Care Teams Concrete Grinder Operator Relationship Specialty Start Date End Date Marisa Sebastian FNP [address] [place] [phone] PCP - General Family Medicine 05/13/22 documented as of this encounter
== END 2025-03-12 08:48 | disposition home or self-care (01) ==
LOC: HO.HHCX 08:47
PROVIDERS: Visit Provider Family Medicine
DX: J45.41 Moderate persistent asthma with (acute) exacerbation (principal)
CPT/HCPCS: 71046

== ENCOUNTER → 2025-03-12 08:48 | Outpatient (BNV) | payer MEDICAID, SELFPAY | PROVIDERS: Visit Provider Radiology Diagnostic Radiology | DX: R06.02 Shortness of breath (principal); R06.2 Wheezing | CPT/HCPCS: 71046 ==